=== PATIENT | male | born 1955 | race Caucasian/White ===

== ENCOUNTER 2017-01-22 14:04 | Emergency (ER) | payer OTHER ==
[2017-01-22] MEDS ORDERED: Sodium Chloride 0.9% 1,000 ML IV ONE (14:32)
--- NOTE | 2017-01-22 14:34 | EDM.PDOC ---
ED HPI GENERAL MEDICAL PROBLEM - General Chief Complaint: Abdominal Pain Stated Complaint: STOMACH PAINS, CONSTIPATION Time Seen by Provider: 01/22/17 14:20 Source of Information: Reports: Patient History Limitations: Reports: No Limitations - History of Present Illness INITIAL COMMENTS - FREE TEXT/NARRATIVE: History of present illness: [61-year-old male presenting with complaints of constipation, abdominal pain and pressure, as well as some amount of nausea. Patient indicates he has just recently completed the very long distance drive where he decreased his fluid intake and he feels that this has made him have constipation of the point that it hurts to bear down and he is dehydrated the] Review of systems: As per history of present illness and below otherwise all systems reviewed and negative. Past medical history: As per history of present illness and as reviewed below otherwise noncontributory. Surgical history: As per history of present illness and as reviewed below otherwise noncontributory. Social history: No reported history of drug or alcohol abuse. Family history: As per history of present illness and as reviewed below otherwise noncontributory. Physical exam: HEENT: Atraumatic, normocephalic, pupils reactive, negative for conjunctival pallor or scleral icterus, mucous membranes moist, throat clear, neck supple, nontender, trachea midline. Lungs: Clear to auscultation, breath sounds equal bilaterally, chest nontender. Heart: S1S2, regular, negative for clicks, rubs, or JVD. Abdomen: Soft, nondistended, nontender. Negative for masses or hepatosplenomegaly. Negative for costovertebral tenderness. Pelvis: Stable nontender. Genitourinary: Deferred. Rectal: Deferred. Extremities: Atraumatic, negative for cords or calf pain. Neurovascular unremarkable. Neuro: Awake, alert, oriented. Cranial nerves II through XII unremarkable. Cerebellum unremarkable. Motor and sensory unremarkable throughout. Exam nonfocal. After patient had had some IV fluids he felt the sudden urge to evacuate his bowel. Patient had A medium, per his description and then felt possibly he could void and he indicated that he did produce A significant amount of urine. Patient indicates that he feels all discomfort is gone and would like to go home patient declined any radiographic studies. Diagnostics: [CBC, CMP, KUB] Therapeutics: [IV fluid] Impression: [Constipation] Plan: [] Definitive disposition and diagnosis as appropriate pending reevaluation and review of above. Abdominal Pain Score (Numeric/FACES): 7 - Related Data Allergies Allergy/AdvReac Type Severity Reaction Status Date / Time No Known Allergies Allergy Verified 03/25/16 05:57 Home Meds: Home Meds Canagliflozin/Metformin HCl [Invokamet 150-500 mg Tablet] 1 each PO BID [History] Past Medical History - Past Health History Medical/Surgical History: Denies Medical/Surgical History HEENT History: Reports: None Cardiovascular History: Reports: None Respiratory History: Reports: None Gastrointestinal History: Reports: None Genitourinary History: Reports: Renal Calculus Musculoskeletal History: Reports: None Neurological History: Reports: None Psychiatric History: Reports: None Endocrine/Metabolic History: Reports: Other (See Below) Other Endocrine/Metabolic History: Borderline DM Hematologic History: Reports: None Immunologic History: Reports: None Oncologic (Cancer) History: Reports: None Dermatologic History: Reports: None - Infectious Disease History Infectious Disease History: Reports: Measles, Mumps - Past Surgical History Head Surgeries/Procedures: Reports: None Social & Family History - Family History Family Medical History: Noncontributory - Tobacco Use Smoking Status *Q: Never Smoker Second Hand Smoke Exposure: No - Caffeine Use Caffeine Use: Reports: None - Alcohol Use Days Per Week of Alcohol Use: 0 - Recreational Drug Use Recreational Drug Use: No ED ROS GENERAL - Review of Systems Review Of Systems: See Below (History of present illness) ED EXAM, GI/ABD - Physical Exam Exam: See Below (History of present illness) Course - Vital Signs Last Recorded V/S: Last Vital Signs Temp 36.3 C 01/22/17 14:22 Pulse 81 01/22/17 14:22 Resp 18 01/22/17 14:22 BP 170/86 H 01/22/17 14:22 Pulse Ox 95 01/22/17 14:22 - Orders/Labs/Meds Labs: Laboratory Tests 01/22/17 01/22/17 Range/Units 14:47 15:21 WBC 9.47 (4.0-11.0) K/uL RBC 5.37 (4.50-5.90) M/uL Hgb 15.3 (13.0-17.0) g/dL Hct 48.6 (38.0-50.0) % MCV 90.5 (80.0-98.0) fL MCH 28.5 (27.0-32.0) pg MCHC 31.5 (31.0-37.0) g/dL RDW Std Deviation 49.0 (28.0-62.0) fl RDW Coeff of Arin 15 (11.0-15.0) % Plt Count 190 (150-400) K/uL MPV 10.80 (7.40-12.00) fL Neut % (Auto) 81.6 H (48.0-80.0) % Lymph % (Auto) 11.1 L (16.0-40.0) % Ness % (Auto) 6.3 (0.0-15.0) % Eos % (Auto) 0.8 (0.0-7.0) % Baso % (Auto) 0.2 (0.0-1.5) % Neut # (Auto) 7.7 H (1.4-5.7) K/uL Lymph # (Auto) 1.1 (0.6-2.4) K/uL Ness # (Auto) 0.6 (0.0-0.8) K/uL Eos # (Auto) 0.1 (0.0-0.7) K/uL Baso # (Auto) 0.0 (0.0-0.1) K/uL Nucleated RBC % 0.0 /100WBC Nucleated RBCs # 0 K/uL Sodium 140 (136-146) mmol/L Potassium 4.4 (3.5-5.1) mmol/L Chloride 108 (98-110) mmol/L Carbon Dioxide 22 (21-31) mmol/L BUN 21 (6.0-23.0) mg/dL Creatinine 1.2 (0.6-1.5) mg/dL Est Cr Clr Drug Dosing 79.22 mL/min Estimated GFR (MDRD) > 60.0 ml/min Glucose 104 (60-110) mg/dL Calcium 9.5 (8.8-10.8) mg/dL Total Bilirubin 0.8 (0.1-1.5) mg/dL AST 15 (5-40) IU/L ALT 14 (8-54) IU/L Alkaline Phosphatase 66 (40-150) Total Protein 8.1 H (6.0-8.0) g/dL Albumin 4.3 (3.5-5.0) g/dL Globulin 3.8 H (2.0-3.5) g/dL Albumin/Globulin Ratio 1.1 L (1.3-2.8) Meds: Medications Discontinued Medications Generic Name Dose Route Start Last Admin Trade Name Ubaldo PRN Reason Stop Dose Admin Sodium Chloride 1,000 mls @ 999 mls/hr 01/22/17 14:32 01/22/17 14:50 Normal Saline IV 01/22/17 15:32 999 mls/hr STAT ONE Administration Departure - Departure Time of Disposition: 16:02 Disposition: Home, Self-Care 01 Condition: good Clinical Impression: Abdominal pain, Constipation - Discharge Information Instructions: Abdominal Pain, Adult, [id number], Constipation, Adult, Easy-to -Read Forms: ED Department Discharge Additional Instructions: The following information is given to patients seen in the emergency department who are being discharged to home. This information is to outline your options for follow-up care. We provide all patients seen in our emergency department with a follow-up referral. The need for follow-up, as well as the timing and circumstances, are variable depending upon the specifics of your emergency department visit. If you don't have a primary care physician on staff, we will provide you with a referral. We always advise you to contact your personal physician following an emergency department visit to inform them of the circumstance of the visit and for follow-up with them and/or the need for any referrals to a consulting specialist. The emergency department will also refer you to a specialist when appropriate. This referral assures that you have the opportunity for follow-up care with a specialist. All of these measure are taken in an effort to provide you with optimal care, which includes your follow-up. Under all circumstances we always encourage you to contact your private physician who remains a resource for coordinating your care. When calling for follow-up care, please make the office aware that this follow-up is from your recent emergency room visit. If for any reason you are refused follow-up, please contact the Emergency Department at and asked to speak to the emergency department charge nurse. Increase water as discussed Increase activity as discussed follow up with the PCP 1-2 day Return to ED as needed as
[2017-01-22 15:52] LABS: CHLORIDE,CL 108 mmol/L (98-110); SODIUM,NA 140 mmol/L (136-146)
[2017-01-22 16:28] VITALS: BP 145/67
== END 2017-01-22 16:25 | disposition home or self-care (01) ==
LOC: MW.ED 14:04
DX: K59.00 Constipation, unspecified (principal); Z79.899 Other long term (current) drug therapy
CPT/HCPCS: 36415; 80053; 85025; 96360; 99284; J7040; 99282

== ENCOUNTER 2017-12-19 10:45 | Inpatient (IN) | payer BC ==
[~2017-12-19 10:45] MED LIST: Dermabond Prineo 1 Tube TOP ONE; Sodium Chloride 0.9% 10 ML Syringe FLUSH PRN; Sodium Chloride 0.9% 2.5 ML Syringe FLUSH PRN; ceFAZolin 2 GM in Premix Bag 1 BAG IV ONE
[2017-12-19] MEDS ORDERED: Lidocaine 2% 5 ML SDV ONE (10:51)
[2017-12-19] MEDS ORDERED: Midazolam 1 MG/ML 2 ML SDV ONE (10:52)
[2017-12-19] MEDS ORDERED: fentaNYL 100 MCG/2 ML SDV ONE (10:52)
[2017-12-19] MEDS ORDERED: Propofol 200 MG/20 ML SDV ONE ×4 (10:52→13:54)
[2017-12-19] MEDS ORDERED: ceFAZolin 1 GM Vial ONE (10:56)
[2017-12-19] MEDS ORDERED: Sodium Chloride 0.9% 20 ML ONE (10:56)
[2017-12-19] MEDS: Lactated Ringers 1,000 ML IV SCH ×2 (11:24→21:53)
--- NOTE | 2017-12-19 11:35 | PCM.PREANE ---
Preanesthetic Assessment - Anesthesia/Transfusion/Family Hx Anesthesia History: Prior Anesthesia Without Reaction Family History of Anesthesia Reaction: No Transfusion History: No Prior Transfusion(s) - Review of Systems General: No Symptoms Pulmonary: Other (SLADE uses CPAP) Cardiovascular: No Symptoms Gastrointestinal: No Symptoms Neurological: No Symptoms Other: Reports: Diabetes ("pre diabetic, Hb A1c = 5, on Invokamet, and lisinopril for renal protection. ) - Physical Assessment NPO Status Date: 12/18/17 O2 Sat by Pulse Oximetry: 97 Respiratory Rate: 16 Vital Signs: Last Vital Signs Temp 36.2 C 12/19/17 11:20 Pulse 68 12/19/17 11:20 Resp 16 12/19/17 11:20 BP 143/72 H 12/19/17 11:20 Pulse Ox 97 12/19/17 11:20 Height: 1.91 m Weight: 176.901 kg ASA Class: 3 Airway Class: Mallampati = 1 Dentition: Reports: Normal Dentition ROM/Head Extension: Full Lungs: Clear to Auscultation, Normal Respiratory Effort Cardiovascular: Regular Rate, Regular Rhythm - Allergies Allergies/Adverse Reactions: Allergies Allergy/AdvReac Type Severity Reaction Status Date / Time No Known Allergies Allergy Verified 12/19/17 11:25 - Acknowledgements Anesthesia Type Planned: General Anesthesia, Spinal Pt an Appropriate Candidate for the Planned Anesthesia: Yes Alternatives and Risks of Anesthesia Discussed w Pt/Guardian: Yes Pt/Guardian Understands and Agrees with Anesthesia Plan: Yes Additional Comments: PLAN: spinal as primary anesthetic, sevo with LMA for sedation and airway protection. PreAnesthesia Questionnaire - Past Health History Medical/Surgical History: Denies Medical/Surgical History HEENT History: Reports: None Cardiovascular History: Reports: None Respiratory History: Reports: Sleep Apnea Other Respiratory History: uses CPAP Gastrointestinal History: Reports: None Genitourinary History: Reports: Renal Calculus Musculoskeletal History: Reports: Fracture, Osteoarthritis Other Musculoskeletal History: DJD, hx fx ankle Neurological History: Reports: None Psychiatric History: Reports: None Endocrine/Metabolic History: Reports: Obesity/BMI 30+, Other (See Below) Other Endocrine/Metabolic History: "prediabetic" Hematologic History: Reports: None Immunologic History: Reports: None Oncologic (Cancer) History: Reports: None Dermatologic History: Reports: None - Infectious Disease History Infectious Disease History: Reports: Measles, Mumps - Past Surgical History Head Surgeries/Procedures: Reports: None HEENT Surgical History: Reports: Tonsillectomy - SUBSTANCE USE Smoking Status *Q: Never Smoker Second Hand Smoke Exposure: No Days Per Week of Alcohol Use: 0 Recreational Drug Use History: No - HOME MEDS Home Medications: Home Meds Canagliflozin/Metformin HCl [Invokamet 150-500 mg Tablet] 1 each PO BID [History] Aspirin [Lo-Dose Aspirin EC] 81 mg PO DAILY 12/17/17 [History] Celecoxib 200 mg PO DAILY 12/17/17 [History] Lisinopril 5 mg PO DAILY 12/17/17 [History] Pravastatin Sodium 10 mg PO DAILY 12/17/17 [History] - CURRENT (IN HOUSE) MEDS Current Meds: Current Medications Lactated Ringer's (Ringers, Lactated) 1,000 mls @ 125 mls/hr IV ASDIRECTED SHASHI Last Admin: 12/19/17 11:24 Dose: 125 mls/hr Sodium Chloride (Saline Flush) 10 ml FLUSH ASDIRECTED PRN PRN Reason: Keep Vein Open Sodium Chloride (Saline Flush) 2.5 ml FLUSH ASDIRECTED PRN PRN Reason: Keep Vein Open Tranexamic Acid (Cyklokapron) 2,000 mg IV ONETIME ONE Stop: 12/19/17 13:01 Discontinued Medications Cefazolin Sodium (Ancef) Confirm Administered Dose 2 gm .ROUTE .STK-MED ONE Stop: 12/19/17 10:57 Fentanyl (Sublimaze) Confirm Administered Dose 100 mcg .ROUTE .STK-MED ONE Stop: 12/19/17 10:53 Cefazolin Sodium/Dextrose 2 gm (/ Premix) 50 mls @ 50 mls/hr IV ONETIME ONE Stop: 12/19/17 08:05 Sodium Chloride (Normal Saline) Confirm Administered Dose 20 mls @ as directed .ROUTE .STK-MED ONE Stop: 12/19/17 10:57 Lidocaine (Xylocaine-Mpf 2%) Confirm Administered Dose 5 ml .ROUTE .STK-MED ONE Stop: 12/19/17 10:52 Midazolam HCl (Versed 1 Mg/Ml) Confirm Administered Dose 2 mg .ROUTE .STK-MED ONE Stop: 12/19/17 10:53 Octyl Cyanoacrylate (Dermabond Prineo) 1 applic TOP .STK-MED ONE Stop: 12/19/17 07:27 Propofol (Diprivan 20 Ml) Confirm Administered Dose 600 mg .ROUTE .STK-MED ONE Stop: 12/19/17 10:53
[2017-12-19] MEDS ORDERED: Phenylephrine/Normal Saline 100 MCG/ML 10 ML Syringe ONE (13:44)
--- NOTE | 2017-12-19 14:17 | PCM.OPNOTE ---
- General Post-Op/Procedure Note Date of Surgery/Procedure: 12/19/17 Operative Procedure(s): left anterior total hip arthroplasty Findings: severe OA Pre Op Diagnosis: left hip osteoarthritis Post-Op Diagnosis: same Anesthesia Technique: Moderate Sedation, Spinal Primary Surgeon: Jimenez Jeronimo Mai [employer] Professor: Holly Vasquez Pathology: femoral head EBL in mLs: 500 Complications: none Condition: Good
[2017-12-19] MEDS ORDERED: Bisacodyl 10 MG Supp RECTAL PRN (14:24)
[2017-12-19] MEDS ORDERED: Ondansetron 4 MG/2 ML SDV IV PRN (14:24)
[2017-12-19] MEDS ORDERED: diphenhydrAMINE 25 MG Cap PO PRN (14:24)
[2017-12-19] MEDS ORDERED: Aluminum Hydroxide/Magnesium Hydroxide/Simethicone Susp 30 ML Cup PO PRN (14:24)
--- NOTE | 2017-12-19 14:45 | PCM.POSTAN ---
POST ANESTHESIA ASSESSMENT - MENTAL STATUS Mental Status: Alert, Oriented - RESPIRATORY Respiratory Status: Respiratory Rate WNL, Airway Patent, O2 Saturation Stable - CARDIOVASCULAR CV Status: Pulse Rate WNL, Blood Pressure Stable - GASTROINTESTINAL GI Status: No Symptoms - POST OP HYDRATION Hydration Status: Adequate & Stable
--- NOTE | 2017-12-19 15:03 | OR ---
SURGEON: Jimenez Glaser MD DATE OF PROCEDURE: 12/19/2017 LEGAL TRANSCRIPTIONIST: Holly Vasquez PA-C. PREOPERATIVE DIAGNOSIS: Left hip osteoarthritis. POSTOPERATIVE DIAGNOSIS: Left hip osteoarthritis. OPERATION PERFORMED: Left anterior total hip arthroplasty. ANESTHESIA: Spinal with sedation. COMPLICATIONS: None. ESTIMATED BLOOD LOSS: 500 mL. SPECIMENS: Femoral head. IMPLANTS: Continuum trabecular metal shell, cluster holes, 58 mm outer diameter. Vivacit- E neutral liner, 36 mm inner diameter; Fitmore hip stem uncemented size C8, biologic delta ceramic femoral head 36 mm diameter +3.5 neck length. PAOLA Vasquez was instrumental in case with retraction, closing, reduction, and hemostasis. INDICATIONS: The patient is a 62-year-old male with severe hip arthritis. He has failed conservative management, modification therapy injections and chronic pain on a daily basis hindering all activities. He wished to undergo a total hip arthroplasty. He understands the risks, benefits, alternatives, and complications of procedure including, but not limited to, infection, neurovascular injury, continued pain, nonresolution of symptoms, DVT, PE, stroke, ND, , leg-length discrepancy, fracture, dislocation. He wished to proceed. OPERATION IN DETAIL: The patient was seen in preoperative area. Operative site was marked. The patient was transferred to the operating room and spinal anesthetic was given. He was placed supine on the Rooney table, and sedation was given. Legs were placed in legs bar with narrow perineal post. Left hip was prepped and draped in a sterile fashion using alcohol followed by ChloraPrep with Ioban covering. He received preop antibiotics with Ancef and also 2 g TXA. Formal time-out was taken identifying the correct procedure and extremity. A 12- cm incision starting just laterally to ASIS going obliquely down femur was made. Dissection carried down to subcutaneous tissues. Hemostasis was obtained. The fascia overlying the TFL was opened and the interval between the TFL and sartorius and deep between the abductors and rectus was opened. The vastus lateralis fascia was opened and the anterior vessels were coagulated. A deep Dylan tractor was placed. The capsule was held and tagged with two FiberWires and the neck was cut from saddle region 1 cm above the lesser trochanter and the head was removed. There was noted be complete loss of cartilage on the superior femoral head and acetabulum. Labral remnants were removed as well as the pulvinar and the inferior capsules were released as well as some portions of the iliopsoas tendon to do extreme tightness. The head measured about 53, it was sequentially reamed from 53 up to 57 mm, it was excellent fit and fill and the bed was planed to make sure it was level and then a Continuum trabecular metal shell with cluster holes impacted in 15 degrees of anteversion and 40 degrees of abduction. It had an excellent press fit. The wound was irrigated out, cleaned out, and then the neutral liner was impacted. Leg was then externally rotated, abducted, and extended after placing the femoral lift. The medial calcar capsule was released. Superior capsule obturator internus and piriformis were released. Central canal finder was utilized and then hip was sequentially broached from starter rasp up to a size C8. It was trial reduced with printed overlay technique with the zero neck length. This showed offset to be good, but leg length to be slightly decreased, therefore the hip was dislocated. The wound was thoroughly irrigated. After removing the stem and the final stem was impacted following the iqugmiut version. It was trial reduced with a +3.5 neck length, which showed equal leg lengths and offset. Therefore, the hip was dislocated. The final ceramic head, 36 mm in diameter, +3.5 neck length was impacted. The hip was reduced. Stay sutures were tied together. The fascia was closed with #1 Vicryl, subcutaneous tissues with 2-0 Stratafix, and skin with running 4-0 Monocryl. Dermabond tape and Aquacel dressing was placed. The patient was transferred to the recovery room in stable condition. Sponge and needle counts were correct at the end of the case. No complications. The patient was given aspirin for DVT prophylaxis. Weightbearing as tolerated. DANIELA / NELSY /[id number]
--- NOTE | 2017-12-19 15:29 | PCM.CONS ---
H&P History of Present Illness - General Date of Service: 12/19/17 Admit Problem/Dx: Admission Diagnosis/Problem Admission Diagnosis/Problem Hip replacement planned Source of Information: Patient, Old Records (Dr Graham's Pre-op evaluation) History Limitations: Reports: No Limitations - History of Present Illness Initial Comments - Free Text/Narative: This 62 [place] old very pleasant male with pmh of SLADE, DM type 2 and obesity presented to L anterior ERIC today with Dr Glaser. Hospitalist service consulted for medical management of DM. Pedrito recently came to floor from PACU, he is alert and doing well. No complaints at this time. No chest pain, SOB or hip pain. Reports he has lost 100 lbs since being diagnoses with diabetes and is feeling a lot better. Pre-op report from Dr Graham reviewed. PCP, Dr Graham. - Related Data Allergies/Adverse Reactions: Allergies Allergy/AdvReac Type Severity Reaction Status Date / Time No Known Allergies Allergy Verified 12/19/17 11:25 Home Medications: Home Meds Canagliflozin/Metformin HCl [Invokamet 150-500 mg Tablet] 1 each PO BID [History] Aspirin [Lo-Dose Aspirin EC] 81 mg PO DAILY 12/17/17 [History] Celecoxib 200 mg PO DAILY 12/17/17 [History] Lisinopril 5 mg PO DAILY 12/17/17 [History] Pravastatin Sodium 10 mg PO DAILY 12/17/17 [History] Past Medical History - Past Health History Medical/Surgical History: Denies Medical/Surgical History HEENT History: Reports: None Cardiovascular History: Reports: High Cholesterol (elevated LDL). Denies: CAD, Hypertension Respiratory History: Reports: Sleep Apnea Other Respiratory History: uses CPAP Gastrointestinal History: Reports: None Genitourinary History: Reports: Renal Calculus Musculoskeletal History: Reports: Fracture, Osteoarthritis Other Musculoskeletal History: DJD, hx fx ankle Neurological History: Reports: None Psychiatric History: Reports: None Endocrine/Metabolic History: Reports: Diabetes, Type II, Obesity/BMI 30+ Hematologic History: Reports: None Immunologic History: Reports: None Oncologic (Cancer) History: Reports: None Dermatologic History: Reports: None - Infectious Disease History Infectious Disease History: Reports: Measles, Mumps - Past Surgical History Head Surgeries/Procedures: Reports: None HEENT Surgical History: Reports: Tonsillectomy Social & Family History - Family History Family Medical History: Noncontributory - Tobacco Use Smoking Status *Q: Never Smoker Second Hand Smoke Exposure: No - Caffeine Use Caffeine Use: Reports: Coffee - Alcohol Use Days Per Week of Alcohol Use: 0 Alcohol Use Frequency: Rarely - Recreational Drug Use Recreational Drug Use: No - Living Situation & Occupation Living situation: Reports: H&P Review of Systems - Review of Systems: Review Of Systems: See Below General: Reports: No Symptoms. Denies: Fever, Chills, Malaise, Weakness, Fatigue HEENT: Reports: No Symptoms. Denies: Headaches, Sinus Congestion, Sore Throat, Vertigo Pulmonary: Reports: No Symptoms. Denies: Shortness of Breath, Wheezing, Cough, Sputum Cardiovascular: Reports: No Symptoms. Denies: Chest Pain, Palpitations, Edema Gastrointestinal: Reports: No Symptoms. Denies: Abdominal Pain, Black Stool, Bloody Stool, Nausea, Vomiting Genitourinary: Reports: No Symptoms. Denies: Dysuria, Frequency, Burning Musculoskeletal: Reports: No Symptoms Skin: Reports: No Symptoms Psychiatric: Reports: No Symptoms Neurological: Reports: No Symptoms Exam - Exam Exam: See Below - Vital Signs Vital Signs: Last Vital Signs Temp 98.6 F 12/19/17 14:25 Pulse 60 12/19/17 14:50 Resp 10 L 12/19/17 14:50 BP 111/46 L 12/19/17 14:50 Pulse Ox 96 12/19/17 14:50 Weight: 176.901 kg - Exam Quality Assessment: Supplemental Oxygen, Urinary Catheter, DVT Prophylaxis General: Alert, Oriented, Cooperative HEENT: Conjunctiva Clear, Mucosa Moist & Monument, Posterior Pharynx Clear Neck: Supple, Trachea Midline, Full Range of Motion, Other (large neck circumference) Lungs: Clear to Auscultation, Normal Respiratory Effort Cardiovascular: Regular Rate, Regular Rhythm GI/Abdominal Exam: Normal Bowel Sounds, Soft, Non-Tender, No Organomegaly, No Distention, No Abnormal Bruit, No Mass, Pelvis Stable, Other (obese abdomen) Extremities: Normal Inspection, Normal Range of Motion, Non-Tender, No Pedal Edema, Normal Capillary Refill Skin: Incision (L hip C/D/I) Neurological: Cranial Nerves Intact Neuro Extensive - Mental Status: Alert, Oriented x3 Psychiatric: Alert, Normal Affect, Normal Mood - Patient Data Lab Results Last 24 hrs: Laboratory Results - last 24 hr 12/19/17 Range/Units 11:35 POC Glucose 85 (60-110) mg/dL Consult PN Assessment/Plan Procedures: Procedures ASSAY OF NATRIURETIC PEPTIDE (01/23/15) ASSAY OF TROPONIN QUANT (01/23/15) ASSAY THYROID STIM HORMONE (03/22/16) CHEST X-RAY 2VW FRONTAL&LATL (03/07/15) COMPLETE CBC AUTOMATED (12/04/17) COMPLETE CBC W/AUTO DIFF WBC (01/22/17) COMPREHEN METABOLIC PANEL (01/22/17) CT ABD & PELVIS W/O CONTRAST (02/02/16) CT THORAX W/O DYE (06/17/17) DRAIN/INJ JOINT/BURSA W/O US (10/16/17) ELECTROCARDIOGRAM TRACING (12/04/17) EMERGENCY DEPT VISIT (01/22/17) EMERGENCY DEPT VISIT (03/25/16) EMERGENCY DEPT VISIT (02/02/16) EMERGENCY DEPT VISIT (01/23/15) FIBRIN DEGRADATION QUANT (01/23/15) GLUCOSE BLOOD TEST (03/25/16) GLYCOSYLATED HEMOGLOBIN TEST (11/29/17) HYDRATE IV INFUSION ADD-ON (02/02/16) HYDRATION IV INFUSION INIT (01/22/17) LIPID PANEL (05/31/17) MEDICAL NUTRITION INDIV IN (04/05/16) METABOLIC PANEL TOTAL CA (11/29/17) NEEDLE LOCALIZATION BY XRAY (10/16/17) POLYSOM 6/>YRS CPAP 4/> PARM (05/24/16) PROTHROMBIN TIME (12/04/17) ROUTINE VENIPUNCTURE (12/04/17) THER/PROPH/DIAG INJ IV PUSH (02/02/16) THER/PROPH/DIAG INJ SC/IM (01/23/15) THROMBOPLASTIN TIME PARTIAL (01/23/15) TX/PRO/DX INJ NEW DRUG ADDON (02/02/16) UR ALBUMIN SEMIQUANTITATIVE (05/31/17) URINALYSIS AUTO W/SCOPE (12/04/17) URINE CULTURE/COLONY COUNT (02/02/16) US EXAM SCROTUM (02/02/16) VASCULAR STUDY (02/02/16) X-RAY EXAM CHEST 2 VIEWS (12/04/17) X-RAY EXAM HIP UNI 2-3 VIEWS (10/15/17) (1) Status post total replacement of left hip SNOMED Code(s): 318939741578, 154272078781 Code(s): Z96.642 - PRESENCE OF LEFT ARTIFICIAL HIP JOINT Current Visit: Yes (2) DM type 2 (diabetes mellitus, type 2) SNOMED Code(s): 70187230 Code(s): E11.9 - TYPE 2 DIABETES MELLITUS WITHOUT COMPLICATIONS Current Visit: Yes Qualifiers: Diabetes mellitus termination clerk insulin use: without termination clerk use Diabetes mellitus complication status: without complication Qualified Code(s): E11.9 - Type 2 diabetes mellitus without complications (3) Elevated LDL cholesterol level SNOMED Code(s): 256776422 Code(s): E78.00 - PURE HYPERCHOLESTEROLEMIA, UNSPECIFIED Current Visit: Yes (4) SLADE on CPAP SNOMED Code(s): 12895722 Code(s): G47.33 - OBSTRUCTIVE SLEEP APNEA (ADULT) (PEDIATRIC); Z99.89 - DEPENDENCE ON OTHER ENABLING MACHINES AND DEVICES Current Visit: Yes (5) Obesity SNOMED Code(s): 842307200, 598228391 Code(s): E66.9 - OBESITY, UNSPECIFIED Current Visit: No Problem List Initiated/Reviewed/Updated: Yes My Orders Last 24 Hours: My Active Orders 12/19/17 15:26 Blood Glucose Check, Bedside [RC] TIDAC 12/19/17 17:00 Insulin Aspart [NovoLOG] See Protocol SUBCUT TIDAC Plan: This 62 year old male admitted with L anterior ERIC. Hospitalist service consulted for medical management of DM 1. S/P L ant ERIC: Per Orthopedics 2. DM type 2: Stable, very well controlled. A1c 5.9. Hold Invokamet while admitted, may restart on discharge. Novolog SSI. Check BS TIDAC. Continue Lisinopril and statin. Monitor BMP. 3. SLADE: On CPAP, did bring for use in the hospital. VTE prophylaxis: Would recommend when deemed appropriate by Orthopedics, ASA BID currently ordered.
[2017-12-19] MEDS: Acetaminophen/HYDROcodone 325-5 MG Tab PO PRN ×2 (15:46→20:28)
[2017-12-19] MEDS: Insulin Aspart 100 Units/ML 3 ML Pen SUBCUT SCH (16:04)
--- NOTE | 2017-12-19 16:19 | CR ---
EXAMINATION: Left hip HISTORY: Arthroplasty COMPARISON: 10/16/2017 TECHNIQUE: 3 images provided FINDINGS/IMPRESSION: Operative control films demonstrate placement of left total hip hardware in good position and alignment. Comparative right hip appears normal.
[2017-12-19] MEDS: Morphine 4 MG/ML Syringe IVPUSH PRN ×2 (18:48→21:48)
[2017-12-19] MEDS: Docusate Sodium 100 MG Cap PO SCH (20:28)
[2017-12-19] MEDS: ceFAZolin 2 GM in Premix Bag 1 BAG IV SCH (20:31)
[2017-12-19] MEDS ORDERED: CANAGLIFLOZIN PO SCH (21:00)
[2017-12-19] MEDS ORDERED: METFORMIN HCL PO SCH (21:00)
[2017-12-20] MEDS: Acetaminophen/HYDROcodone 325-5 MG Tab PO PRN ×2 (00:37→08:23)
[2017-12-20] MEDS: Morphine 4 MG/ML Syringe IVPUSH PRN (03:42)
[2017-12-20] MEDS: ceFAZolin 2 GM in Premix Bag 1 BAG IV SCH (04:01)
[2017-12-20 06:41] LABS: CHLORIDE,CL 104 mmol/L (98-107); SODIUM,NA 136 mmol/L (136-148)
[2017-12-20] MEDS: Insulin Aspart 100 Units/ML 3 ML Pen SUBCUT SCH ×2 (06:53→12:03)
[2017-12-20] MEDS ORDERED: Sodium Chloride 0.9% 2.5 ML Syringe FLUSH PRN (07:47)
[2017-12-20] MEDS ORDERED: Sodium Chloride 0.9% 10 ML Syringe FLUSH PRN (07:47)
--- NOTE | 2017-12-20 07:53 | PCM.SN ---
- Free Text/Narrative Note: Subjective: Patient is overall doing very well. He is ambulating by himself multiple times with a walker. His deep pain is better. He's having no other issues and is tolerating by mouth. Objective: Afebrile, vital signs stable Left hip dressing clean/dry/intact. Ears no erythema or drainage. There is no swelling in thigh or distally and he has normal sensation motor and pulses distally. Hgb 14.0 Assessment/Plan: POD#1 Left total hip arthroplasty full weight bearing with walker, PT SCDs and ecotrin for DVT prophylaxis hgb is good home today with follow up in 2 weeks.
--- NOTE | 2017-12-20 08:00 | PCM.DCSUM1 ---
Discharge Summary - Hospital Course Brief History: patient is admitted for elective total hip arthroplasty - Discharge Data Discharge Date: 12/20/17 Discharge Disposition: Home, Self-Care 01 Condition: Good - Patient Summary/Data Operative Procedure(s) Performed: left anterior total hip arthroplasty Consults: Consultations 12/19/17 14:24 Consult to Physician [CONS] Routine PT Evaluation and Treatment [CONS] Routine Hospital Course: patient was admitted for elective total hip arthroplasty. postoperatively he was admitted to the floor where his pain was controlled, his diet was advanced, and his pain was controlled. He participated in physical therpay with weight bearing as tolerated. He did well and was discharged to home on POD #1. follow up in 2 weeks. - Patient Instructions Diet: Usual Diet as Tolerated Activity: Apply Ice, As Tolerated, Full Weight Bearing Driving: Do Not Drive Showering/Bathing: May Shower Wound/Incision Care: Keep Operative Site/Wound Site Clean and Dry, Do NOT Change Dressing Notify Provider of: Fever, Swelling and Redness, Drainage - Discharge Plan Home Medications: Home Meds Canagliflozin/Metformin HCl [Invokamet 150-500 mg Tablet] 1 each PO BID [History] Aspirin [Lo-Dose Aspirin EC] 81 mg PO DAILY 12/17/17 [History] Celecoxib 200 mg PO DAILY 12/17/17 [History] Lisinopril 5 mg PO DAILY 12/17/17 [History] Pravastatin Sodium 10 mg PO DAILY 12/17/17 [History] Patient Handouts: Acetaminophen; Hydrocodone tablets or capsules, Total Hip Replacement, Care After, [id number], Docusate capsules, Aspirin capsules or tablets extended release Referrals: Holly Vasquez PA [Physician [employer]] - 12/31/17 8:45 am - Discharge Summary/Plan Comment DC Time >30 min.: No - Patient Data Vitals - Most Recent: Last Vital Signs Temp 36.8 C 12/20/17 07:44 Pulse 78 12/20/17 07:44 Resp 18 12/20/17 07:44 BP 147/78 H 12/20/17 07:44 Pulse Ox 96 12/20/17 07:44 Weight - Most Recent: 176.901 kg I&O - Last 24 hours: Intake & Output 12/19/17 12/20/17 12/20/17 22:59 06:59 14:59 Intake Total 800 Output Total 1000 Balance -200 Lab Results - Last 24 hrs: Laboratory Results - last 24 hr 12/19/17 12/19/17 12/20/17 Range/Units 11:35 16:01 05:50 WBC 10.95 (4.0-11.0) K/uL RBC 4.65 (4.50-5.90) M/uL Hgb 14.0 (13.0-17.0) g/dL Hct 42.3 (38.0-50.0) % MCV 91.0 (80.0-98.0) fL MCH 30.1 (27.0-32.0) pg MCHC 33.1 (31.0-37.0) g/dL RDW Std Deviation 47.9 (28.0-62.0) fl RDW Coeff of Arin 14 (11.0-15.0) % Plt Count 139 L (150-400) K/uL MPV 10.30 (7.40-12.00) fL Neut % (Auto) 81.9 H (48.0-80.0) % Lymph % (Auto) 9.0 L (16.0-40.0) % Canadian % (Auto) 7.8 (0.0-15.0) % Eos % (Auto) 1.1 (0.0-7.0) % Baso % (Auto) 0.2 (0.0-1.5) % Neut # (Auto) 9.0 H (1.4-5.7) K/uL Lymph # (Auto) 1.0 (0.6-2.4) K/uL Canadian # (Auto) 0.9 H (0.0-0.8) K/uL Eos # (Auto) 0.1 (0.0-0.7) K/uL Baso # (Auto) 0.0 (0.0-0.1) K/uL Nucleated RBC % 0.0 /100WBC Nucleated RBCs # 0 K/uL Sodium (136-148) mmol/L Potassium (3.5-5.1) mmol/L Chloride (98-107) mmol/L Carbon Dioxide (21.0-32.0) mmol/L BUN (7.0-18.0) mg/dL Creatinine (0.8-1.3) mg/dL Est Cr Clr Drug Dosing mL/min Estimated GFR (MDRD) ml/min Glucose (74-106) mg/dL POC Glucose 85 90 (60-110) mg/dL Calcium (8.5-10.1) mg/dL 12/20/17 12/20/17 Range/Units 05:50 06:17 WBC (4.0-11.0) K/uL RBC (4.50-5.90) M/uL Hgb (13.0-17.0) g/dL Hct (38.0-50.0) % MCV (80.0-98.0) fL MCH (27.0-32.0) pg MCHC (31.0-37.0) g/dL RDW Std Deviation (28.0-62.0) fl RDW Coeff of Arin (11.0-15.0) % Plt Count (150-400) K/uL MPV (7.40-12.00) fL Neut % (Auto) (48.0-80.0) % Lymph % (Auto) (16.0-40.0) % Canadian % (Auto) (0.0-15.0) % Eos % (Auto) (0.0-7.0) % Baso % (Auto) (0.0-1.5) % Neut # (Auto) (1.4-5.7) K/uL Lymph # (Auto) (0.6-2.4) K/uL Canadian # (Auto) (0.0-0.8) K/uL Eos # (Auto) (0.0-0.7) K/uL Baso # (Auto) (0.0-0.1) K/uL Nucleated RBC % /100WBC Nucleated RBCs # K/uL Sodium 136 (136-148) mmol/L Potassium 4.7 (3.5-5.1) mmol/L Chloride 104 (98-107) mmol/L Carbon Dioxide 28.2 (21.0-32.0) mmol/L BUN 17 (7.0-18.0) mg/dL Creatinine 1.1 (0.8-1.3) mg/dL Est Cr Clr Drug Dosing 85.35 mL/min Estimated GFR (MDRD) > 60.0 ml/min Glucose 116 H (74-106) mg/dL POC Glucose 98 (60-110) mg/dL Calcium 8.7 (8.5-10.1) mg/dL Med Orders - Current: Current Medications Hydrocodone Bitart/Acetaminophen ([place] 325-5 Mg) 1 - 2 tab PO Q4H PRN PRN Reason: Pain Last Admin: 12/20/17 00:37 Dose: 2 tab Al Hydroxide/Mg Hydroxide (Mag-Al Plus) 30 ml PO Q4H PRN PRN Reason: indigestion Aspirin (Aspirin) 325 mg PO BID [facility] Bisacodyl (Dulcolax) 10 mg RECTAL DAILY PRN PRN Reason: Constipation Celecoxib (Celebrex) 200 mg PO DAILY [facility] Diphenhydramine HCl (Benadryl) 25 - 50 mg PO Q6H PRN PRN Reason: Itching Docusate Sodium (Colace) 100 mg PO BID [facility] Last Admin: 12/19/17 20:28 Dose: 100 mg Lactated Ringer's (Ringers, Lactated) 1,000 mls @ 125 mls/hr IV ASDIRECTED [facility] Last Admin: 12/19/17 21:53 Dose: 125 mls/hr Insulin Aspart (Novolog) 0 unit SUBCUT TIDAC [facility]; Protocol Last Admin: 12/20/17 06:53 Dose: Not Given Lisinopril (Prinivil) 5 mg PO DAILY [facility] Morphine Sulfate (Morphine) 1 - 3 mg IVPUSH Q3H PRN PRN Reason: Pain Last Admin: 12/20/17 03:42 Dose: 1 mg Ondansetron HCl (Zofran) 4 mg IV Q6HR PRN PRN Reason: NAUSEA/VOMITING Pravastatin Sodium (Pravachol) 10 mg PO DAILY [facility] Sodium Chloride (Saline Flush) 10 ml FLUSH ASDIRECTED PRN PRN Reason: Keep Vein Open Sodium Chloride (Saline Flush) 2.5 ml FLUSH ASDIRECTED PRN PRN Reason: Keep Vein Open Sodium Chloride (Saline Flush) 10 ml FLUSH ASDIRECTED PRN PRN Reason: Keep Vein Open Sodium Chloride (Saline Flush) 2.5 ml FLUSH ASDIRECTED PRN PRN Reason: Keep Vein Open Discontinued Medications Cefazolin Sodium (Ancef) Confirm Administered Dose 2 gm .ROUTE .STK-MED ONE Stop: 12/19/17 10:57 Fentanyl (Sublimaze) Confirm Administered Dose 100 mcg .ROUTE .STK-MED ONE Stop: 12/19/17 10:53 Cefazolin Sodium/Dextrose 2 gm (/ Premix) 50 mls @ 50 mls/hr IV ONETIME ONE Stop: 12/19/17 08:05 Last Admin: 12/19/17 14:56 Dose: Not Given Sodium Chloride (Normal Saline) Confirm Administered Dose 20 mls @ as directed .ROUTE .STK-MED ONE Stop: 12/19/17 10:57 Cefazolin Sodium/Dextrose 2 gm (/ Premix) 50 mls @ 100 mls/hr IV Q8H SHASHI Stop: 12/20/17 05:29 Last Admin: 12/20/17 04:01 Dose: 100 mls/hr Lidocaine (Xylocaine-Mpf 2%) Confirm Administered Dose 5 ml .ROUTE .STK-MED ONE Stop: 12/19/17 10:52 Lidocaine HCl (Xylocaine-Mpf 1%) Confirm Administered Dose 5 ml .ROUTE .STK-MED ONE Stop: 12/19/17 13:21 Midazolam HCl (Versed 1 Mg/Ml) Confirm Administered Dose 2 mg .ROUTE .STK-MED ONE Stop: 12/19/17 10:53 Octyl Cyanoacrylate (Dermabond Prineo) 1 applic TOP .STK-MED ONE Stop: 12/19/17 07:27 Canagliflozin/Metformin Hcl [ Invokamet 150-500 Mg Tablet 1 Tablet 1 each PO BID SHASHI Phenylephrine HCl (Phenylephrine In Ns 100 Mcg/Ml) Confirm Administered Dose 1 mg .ROUTE .STK-MED ONE Stop: 12/19/17 13:45 Propofol (Diprivan 20 Ml) Confirm Administered Dose 600 mg .ROUTE .STK-MED ONE Stop: 12/19/17 10:53 Propofol (Diprivan 20 Ml) Confirm Administered Dose 600 mg .ROUTE .STK-MED ONE Stop: 12/19/17 13:14 Propofol (Diprivan 20 Ml) Confirm Administered Dose 200 mg .ROUTE .STK-MED ONE Stop: 12/19/17 13:49 Propofol (Diprivan 20 Ml) Confirm Administered Dose 400 mg .ROUTE .STK-MED ONE Stop: 12/19/17 13:55 Tranexamic Acid (Cyklokapron) 2,000 mg IV ONETIME ONE Stop: 12/19/17 13:01 Last Admin: 12/19/17 14:56 Dose: Not Given
--- NOTE | 2017-12-20 08:07 | PCM48HPAN ---
Post Anesthesia Note - EVALUATION WITHIN 48HRS OF ANESTHETIC Vital Signs in Normal Range: Yes Patient Participated in Evaluation: Yes Respiratory Function Stable: Yes Airway Patent: Yes Cardiovascular Function Stable: Yes Hydration Status Stable: Yes Pain Control Satisfactory: Yes Nausea and Vomiting Control Satisfactory: Yes Mental Status Recovered: Yes Resp Rate: 18
[2017-12-20] MEDS: Docusate Sodium 100 MG Cap PO SCH (08:26)
[2017-12-20] MEDS ORDERED: Acetaminophen/HYDROcodone 325-7.5 MG Tab PO PRN (08:37)
[2017-12-20] MEDS ORDERED: Celecoxib 100 MG Cap PO SCH (09:00)
[2017-12-20] MEDS ORDERED: Aspirin 325 MG Tab PO SCH (09:00)
[2017-12-20] MEDS ORDERED: Lisinopril 5 MG Tab PO SCH (09:00)
[2017-12-20] MEDS ORDERED: Pravastatin 40 MG Tab PO SCH (09:00)
--- NOTE | 2017-12-20 09:06 | PCM.PN ---
- General Info Date of Service: 12/20/17 Admission Dx/Problem (Free Text): Admission Diagnosis/Problem Admission Diagnosis/Problem Hip replacement planned Functional Status: Reports: Pain Controlled - Review of Systems General: Reports: No Symptoms. Denies: Fever, Weakness - Patient Data Vitals - Most Recent: Last Vital Signs Temp 98.2 F 12/20/17 07:44 Pulse 78 12/20/17 07:44 Resp 18 12/20/17 08:07 BP 144/78 H 12/20/17 08:26 Pulse Ox 96 12/20/17 07:44 Weight - Most Recent: 176.901 kg I&O - Last 24 Hours: Intake & Output 12/19/17 12/20/17 12/20/17 22:59 06:59 14:59 Intake Total 800 Output Total 1000 Balance -200 Lab Results Last 24 Hours: Laboratory Results - last 24 hr 12/19/17 12/19/17 12/20/17 Range/Units 11:35 16:01 05:50 WBC 10.95 (4.0-11.0) K/uL RBC 4.65 (4.50-5.90) M/uL Hgb 14.0 (13.0-17.0) g/dL Hct 42.3 (38.0-50.0) % MCV 91.0 (80.0-98.0) fL MCH 30.1 (27.0-32.0) pg MCHC 33.1 (31.0-37.0) g/dL RDW Std Deviation 47.9 (28.0-62.0) fl RDW Coeff of Arin 14 (11.0-15.0) % Plt Count 139 L (150-400) K/uL MPV 10.30 (7.40-12.00) fL Neut % (Auto) 81.9 H (48.0-80.0) % Lymph % (Auto) 9.0 L (16.0-40.0) % [place] % (Auto) 7.8 (0.0-15.0) % Eos % (Auto) 1.1 (0.0-7.0) % Baso % (Auto) 0.2 (0.0-1.5) % Neut # (Auto) 9.0 H (1.4-5.7) K/uL Lymph # (Auto) 1.0 (0.6-2.4) K/uL [place] # (Auto) 0.9 H (0.0-0.8) K/uL Eos # (Auto) 0.1 (0.0-0.7) K/uL Baso # (Auto) 0.0 (0.0-0.1) K/uL Nucleated RBC % 0.0 /100WBC Nucleated RBCs # 0 K/uL Sodium (136-148) mmol/L Potassium (3.5-5.1) mmol/L Chloride (98-107) mmol/L Carbon Dioxide (21.0-32.0) mmol/L BUN (7.0-18.0) mg/dL Creatinine (0.8-1.3) mg/dL Est Cr Clr Drug Dosing mL/min Estimated GFR (MDRD) ml/min Glucose (74-106) mg/dL POC Glucose 85 90 (60-110) mg/dL Calcium (8.5-10.1) mg/dL 12/20/17 12/20/17 Range/Units 05:50 06:17 WBC (4.0-11.0) K/uL RBC (4.50-5.90) M/uL Hgb (13.0-17.0) g/dL Hct (38.0-50.0) % MCV (80.0-98.0) fL MCH (27.0-32.0) pg MCHC (31.0-37.0) g/dL RDW Std Deviation (28.0-62.0) fl RDW Coeff of Arin (11.0-15.0) % Plt Count (150-400) K/uL MPV (7.40-12.00) fL Neut % (Auto) (48.0-80.0) % Lymph % (Auto) (16.0-40.0) % [place] % (Auto) (0.0-15.0) % Eos % (Auto) (0.0-7.0) % Baso % (Auto) (0.0-1.5) % Neut # (Auto) (1.4-5.7) K/uL Lymph # (Auto) (0.6-2.4) K/uL [place] # (Auto) (0.0-0.8) K/uL Eos # (Auto) (0.0-0.7) K/uL Baso # (Auto) (0.0-0.1) K/uL Nucleated RBC % /100WBC Nucleated RBCs # K/uL Sodium 136 (136-148) mmol/L Potassium 4.7 (3.5-5.1) mmol/L Chloride 104 (98-107) mmol/L Carbon Dioxide 28.2 (21.0-32.0) mmol/L BUN 17 (7.0-18.0) mg/dL Creatinine 1.1 (0.8-1.3) mg/dL Est Cr Clr Drug Dosing 85.35 mL/min Estimated GFR (MDRD) > 60.0 ml/min Glucose 116 H (74-106) mg/dL POC Glucose 98 (60-110) mg/dL Calcium 8.7 (8.5-10.1) mg/dL Med Orders - Current: Current Medications Hydrocodone Bitart/Acetaminophen ([place] 325-7.5 Mg) 2 tab PO Q4H PRN PRN Reason: Pain (moderate 4-6) Al Hydroxide/Mg Hydroxide (Mag-Al Plus) 30 ml PO Q4H PRN PRN Reason: indigestion Aspirin (Aspirin) 325 mg PO BID [facility] Last Admin: 12/20/17 08:26 Dose: 325 mg Bisacodyl (Dulcolax) 10 mg RECTAL DAILY PRN PRN Reason: Constipation Celecoxib (Celebrex) 200 mg PO DAILY [facility] Last Admin: 12/20/17 08:26 Dose: 200 mg Diphenhydramine HCl (Benadryl) 25 - 50 mg PO Q6H PRN PRN Reason: Itching Docusate Sodium (Colace) 100 mg PO BID [facility] Last Admin: 12/20/17 08:26 Dose: 100 mg Lactated Ringer's (Ringers, Lactated) 1,000 mls @ 125 mls/hr IV ASDIRECTED [facility] Last Admin: 12/19/17 21:53 Dose: 125 mls/hr Insulin Aspart (Novolog) 0 unit SUBCUT TIDAC [facility]; Protocol Last Admin: 12/20/17 06:53 Dose: Not Given Lisinopril (Prinivil) 5 mg PO DAILY [facility] Last Admin: 12/20/17 08:26 Dose: 5 mg Morphine Sulfate (Morphine) 1 - 3 mg IVPUSH Q3H PRN PRN Reason: Pain Last Admin: 12/20/17 03:42 Dose: 1 mg Ondansetron HCl (Zofran) 4 mg IV Q6HR PRN PRN Reason: NAUSEA/VOMITING Pravastatin Sodium (Pravachol) 10 mg PO DAILY [facility] Last Admin: 12/20/17 08:27 Dose: 10 mg Sodium Chloride (Saline Flush) 10 ml FLUSH ASDIRECTED PRN PRN Reason: Keep Vein Open Sodium Chloride (Saline Flush) 2.5 ml FLUSH ASDIRECTED PRN PRN Reason: Keep Vein Open Sodium Chloride (Saline Flush) 10 ml FLUSH ASDIRECTED PRN PRN Reason: Keep Vein Open Sodium Chloride (Saline Flush) 2.5 ml FLUSH ASDIRECTED PRN PRN Reason: Keep Vein Open Discontinued Medications Hydrocodone Bitart/Acetaminophen ([place] 325-5 Mg) 1 - 2 tab PO Q4H PRN PRN Reason: Pain Last Admin: 12/20/17 08:23 Dose: 2 tab Cefazolin Sodium (Ancef) Confirm Administered Dose 2 gm .ROUTE .STK-MED ONE Stop: 12/19/17 10:57 Fentanyl (Sublimaze) Confirm Administered Dose 100 mcg .ROUTE .STK-MED ONE Stop: 12/19/17 10:53 Cefazolin Sodium/Dextrose 2 gm (/ Premix) 50 mls @ 50 mls/hr IV ONETIME ONE Stop: 12/19/17 08:05 Last Admin: 12/19/17 14:56 Dose: Not Given Sodium Chloride (Normal Saline) Confirm Administered Dose 20 mls @ as directed .ROUTE .STK-MED ONE Stop: 12/19/17 10:57 Cefazolin Sodium/Dextrose 2 gm (/ Premix) 50 mls @ 100 mls/hr IV Q8H [facility] Stop: 12/20/17 05:29 Last Admin: 12/20/17 04:01 Dose: 100 mls/hr Lidocaine (Xylocaine-Mpf 2%) Confirm Administered Dose 5 ml .ROUTE .STK-MED ONE Stop: 12/19/17 10:52 Lidocaine HCl (Xylocaine-Mpf 1%) Confirm Administered Dose 5 ml .ROUTE .STK-MED ONE Stop: 12/19/17 13:21 Midazolam HCl (Versed 1 Mg/Ml) Confirm Administered Dose 2 mg .ROUTE .STK-MED ONE Stop: 12/19/17 10:53 Octyl Cyanoacrylate (Dermabond Prineo) 1 applic TOP .STK-MED ONE Stop: 12/19/17 07:27 Canagliflozin/Metformin Hcl [ Invokamet 150-500 Mg Tablet 1 Tablet 1 each PO BID [facility] Phenylephrine HCl (Phenylephrine In Ns 100 Mcg/Ml) Confirm Administered Dose 1 mg .ROUTE .STK-MED ONE Stop: 12/19/17 13:45 Propofol (Diprivan 20 Ml) Confirm Administered Dose 600 mg .ROUTE .STK-MED ONE Stop: 12/19/17 10:53 Propofol (Diprivan 20 Ml) Confirm Administered Dose 600 mg .ROUTE .STK-MED ONE Stop: 12/19/17 13:14 Propofol (Diprivan 20 Ml) Confirm Administered Dose 200 mg .ROUTE .STK-MED ONE Stop: 12/19/17 13:49 Propofol (Diprivan 20 Ml) Confirm Administered Dose 400 mg .ROUTE .STK-MED ONE Stop: 12/19/17 13:55 Tranexamic Acid (Cyklokapron) 2,000 mg IV ONETIME ONE Stop: 12/19/17 13:01 Last Admin: 12/19/17 14:56 Dose: Not Given - Problem List & Annotations (1) Status post total replacement of left hip SNOMED Code(s): 225241667458, 582531577251 Code(s): Z96.642 - PRESENCE OF LEFT ARTIFICIAL HIP JOINT Status: Acute Current Visit: Yes (2) DM type 2 (diabetes mellitus, type 2) SNOMED Code(s): 01314300 Code(s): E11.9 - TYPE 2 DIABETES MELLITUS WITHOUT COMPLICATIONS Status: Acute Current Visit: Yes Qualifiers: Diabetes mellitus termite control service representative insulin use: without termite control service representative use Diabetes mellitus complication status: without complication Qualified Code(s): E11.9 - Type 2 diabetes mellitus without complications (3) Elevated LDL cholesterol level SNOMED Code(s): 231505214 Code(s): E78.00 - PURE HYPERCHOLESTEROLEMIA, UNSPECIFIED Status: Acute Current Visit: Yes (4) SLADE on CPAP SNOMED Code(s): 47155452 Code(s): G47.33 - OBSTRUCTIVE SLEEP APNEA (ADULT) (PEDIATRIC); Z99.89 - DEPENDENCE ON OTHER ENABLING MACHINES AND DEVICES Status: Acute Current Visit: Yes (5) Obesity SNOMED Code(s): 799889730, 864281150 Code(s): E66.9 - OBESITY, UNSPECIFIED Status: Acute Current Visit: No - My Orders Last 24 Hours: My Active Orders 12/19/17 15:26 Blood Glucose Check, Bedside [RC] TIDAC 12/19/17 17:00 Insulin Aspart [NovoLOG] See Protocol SUBCUT TIDAC
--- NOTE | 2017-12-20 09:09 | PCM.CONSN ---
- General Info Date of Service: 12/20/17 Admission Dx/Problem (Free Text): S/P L anterior ERIC Subjective Update: Sitting up in the chair, doing well. Having some L hip discomfort. Denies chest pain, SOB or other concerns. Functional Status: Reports: Pain Controlled, Tolerating Diet, Ambulating, Urinating - Review of Systems General: Reports: No Symptoms. Denies: Fever, Weakness, Fatigue, Malaise HEENT: Reports: No Symptoms. Denies: Headaches, Sore Throat, Rhinitis, Visual Changes Pulmonary: Reports: No Symptoms. Denies: Shortness of Breath, Pleuritic Chest Pain, Cough, Sputum Cardiovascular: Reports: No Symptoms. Denies: Chest Pain, Palpitations, Dyspnea on Exertion Gastrointestinal: Reports: No Symptoms. Denies: Abdominal Pain, Nausea, Vomiting Genitourinary: Reports: No Symptoms. Denies: Dysuria, Frequency, Burning Musculoskeletal: Reports: No Symptoms Skin: Reports: No Symptoms Neurological: Reports: No Symptoms Psychiatric: Reports: No Symptoms - Patient Data Vitals - Most Recent: Last Vital Signs Temp 98.2 F 12/20/17 07:44 Pulse 78 12/20/17 07:44 Resp 18 12/20/17 08:07 BP 144/78 H 12/20/17 08:26 Pulse Ox 96 12/20/17 07:44 Weight - Most Recent: 176.901 kg I&O - Last 24 Hours: Intake & Output 12/19/17 12/20/17 12/20/17 22:59 06:59 14:59 Intake Total 800 Output Total 1000 Balance -200 Lab Results Last 24 Hours: Laboratory Results - last 24 hr 12/19/17 12/19/17 12/20/17 Range/Units 11:35 16:01 05:50 WBC 10.95 (4.0-11.0) K/uL RBC 4.65 (4.50-5.90) M/uL Hgb 14.0 (13.0-17.0) g/dL Hct 42.3 (38.0-50.0) % MCV 91.0 (80.0-98.0) fL MCH 30.1 (27.0-32.0) pg MCHC 33.1 (31.0-37.0) g/dL RDW Std Deviation 47.9 (28.0-62.0) fl RDW Coeff of Arin 14 (11.0-15.0) % Plt Count 139 L (150-400) K/uL MPV 10.30 (7.40-12.00) fL Neut % (Auto) 81.9 H (48.0-80.0) % Lymph % (Auto) 9.0 L (16.0-40.0) % [place] % (Auto) 7.8 (0.0-15.0) % Eos % (Auto) 1.1 (0.0-7.0) % Baso % (Auto) 0.2 (0.0-1.5) % Neut # (Auto) 9.0 H (1.4-5.7) K/uL Lymph # (Auto) 1.0 (0.6-2.4) K/uL [place] # (Auto) 0.9 H (0.0-0.8) K/uL Eos # (Auto) 0.1 (0.0-0.7) K/uL Baso # (Auto) 0.0 (0.0-0.1) K/uL Nucleated RBC % 0.0 /100WBC Nucleated RBCs # 0 K/uL Sodium (136-148) mmol/L Potassium (3.5-5.1) mmol/L Chloride (98-107) mmol/L Carbon Dioxide (21.0-32.0) mmol/L BUN (7.0-18.0) mg/dL Creatinine (0.8-1.3) mg/dL Est Cr Clr Drug Dosing mL/min Estimated GFR (MDRD) ml/min Glucose (74-106) mg/dL POC Glucose 85 90 (60-110) mg/dL Calcium (8.5-10.1) mg/dL 12/20/17 12/20/17 Range/Units 05:50 06:17 WBC (4.0-11.0) K/uL RBC (4.50-5.90) M/uL Hgb (13.0-17.0) g/dL Hct (38.0-50.0) % MCV (80.0-98.0) fL MCH (27.0-32.0) pg MCHC (31.0-37.0) g/dL RDW Std Deviation (28.0-62.0) fl RDW Coeff of Arin (11.0-15.0) % Plt Count (150-400) K/uL MPV (7.40-12.00) fL Neut % (Auto) (48.0-80.0) % Lymph % (Auto) (16.0-40.0) % [place] % (Auto) (0.0-15.0) % Eos % (Auto) (0.0-7.0) % Baso % (Auto) (0.0-1.5) % Neut # (Auto) (1.4-5.7) K/uL Lymph # (Auto) (0.6-2.4) K/uL [place] # (Auto) (0.0-0.8) K/uL Eos # (Auto) (0.0-0.7) K/uL Baso # (Auto) (0.0-0.1) K/uL Nucleated RBC % /100WBC Nucleated RBCs # K/uL Sodium 136 (136-148) mmol/L Potassium 4.7 (3.5-5.1) mmol/L Chloride 104 (98-107) mmol/L Carbon Dioxide 28.2 (21.0-32.0) mmol/L BUN 17 (7.0-18.0) mg/dL Creatinine 1.1 (0.8-1.3) mg/dL Est Cr Clr Drug Dosing 85.35 mL/min Estimated GFR (MDRD) > 60.0 ml/min Glucose 116 H (74-106) mg/dL POC Glucose 98 (60-110) mg/dL Calcium 8.7 (8.5-10.1) mg/dL Med Orders - Current: Current Medications Hydrocodone Bitart/Acetaminophen ([place] 325-7.5 Mg) 2 tab PO Q4H PRN PRN Reason: Pain (moderate 4-6) Al Hydroxide/Mg Hydroxide (Mag-Al Plus) 30 ml PO Q4H PRN PRN Reason: indigestion Aspirin (Aspirin) 325 mg PO BID [facility] Last Admin: 12/20/17 08:26 Dose: 325 mg Bisacodyl (Dulcolax) 10 mg RECTAL DAILY PRN PRN Reason: Constipation Celecoxib (Celebrex) 200 mg PO DAILY [facility] Last Admin: 12/20/17 08:26 Dose: 200 mg Diphenhydramine HCl (Benadryl) 25 - 50 mg PO Q6H PRN PRN Reason: Itching Docusate Sodium (Colace) 100 mg PO BID [facility] Last Admin: 12/20/17 08:26 Dose: 100 mg Lactated Ringer's (Ringers, Lactated) 1,000 mls @ 125 mls/hr IV ASDIRECTED [facility] Last Admin: 12/19/17 21:53 Dose: 125 mls/hr Insulin Aspart (Novolog) 0 unit SUBCUT TIDAC [facility]; Protocol Last Admin: 12/20/17 06:53 Dose: Not Given Lisinopril (Prinivil) 5 mg PO DAILY [facility] Last Admin: 12/20/17 08:26 Dose: 5 mg Morphine Sulfate (Morphine) 1 - 3 mg IVPUSH Q3H PRN PRN Reason: Pain Last Admin: 12/20/17 03:42 Dose: 1 mg Ondansetron HCl (Zofran) 4 mg IV Q6HR PRN PRN Reason: NAUSEA/VOMITING Pravastatin Sodium (Pravachol) 10 mg PO DAILY [facility] Last Admin: 12/20/17 08:27 Dose: 10 mg Sodium Chloride (Saline Flush) 10 ml FLUSH ASDIRECTED PRN PRN Reason: Keep Vein Open Sodium Chloride (Saline Flush) 2.5 ml FLUSH ASDIRECTED PRN PRN Reason: Keep Vein Open Sodium Chloride (Saline Flush) 10 ml FLUSH ASDIRECTED PRN PRN Reason: Keep Vein Open Sodium Chloride (Saline Flush) 2.5 ml FLUSH ASDIRECTED PRN PRN Reason: Keep Vein Open Discontinued Medications Hydrocodone Bitart/Acetaminophen ([place] 325-5 Mg) 1 - 2 tab PO Q4H PRN PRN Reason: Pain Last Admin: 12/20/17 08:23 Dose: 2 tab Cefazolin Sodium (Ancef) Confirm Administered Dose 2 gm .ROUTE .STK-MED ONE Stop: 12/19/17 10:57 Fentanyl (Sublimaze) Confirm Administered Dose 100 mcg .ROUTE .STK-MED ONE Stop: 12/19/17 10:53 Cefazolin Sodium/Dextrose 2 gm (/ Premix) 50 mls @ 50 mls/hr IV ONETIME ONE Stop: 12/19/17 08:05 Last Admin: 12/19/17 14:56 Dose: Not Given Sodium Chloride (Normal Saline) Confirm Administered Dose 20 mls @ as directed .ROUTE .STK-MED ONE Stop: 12/19/17 10:57 Cefazolin Sodium/Dextrose 2 gm (/ Premix) 50 mls @ 100 mls/hr IV Q8H [facility] Stop: 12/20/17 05:29 Last Admin: 12/20/17 04:01 Dose: 100 mls/hr Lidocaine (Xylocaine-Mpf 2%) Confirm Administered Dose 5 ml .ROUTE .STK-MED ONE Stop: 12/19/17 10:52 Lidocaine HCl (Xylocaine-Mpf 1%) Confirm Administered Dose 5 ml .ROUTE .STK-MED ONE Stop: 12/19/17 13:21 Midazolam HCl (Versed 1 Mg/Ml) Confirm Administered Dose 2 mg .ROUTE .STK-MED ONE Stop: 12/19/17 10:53 Octyl Cyanoacrylate (Dermabond Prineo) 1 applic TOP .STK-MED ONE Stop: 12/19/17 07:27 Canagliflozin/Metformin Hcl [ Invokamet 150-500 Mg Tablet 1 Tablet 1 each PO BID [facility] Phenylephrine HCl (Phenylephrine In Ns 100 Mcg/Ml) Confirm Administered Dose 1 mg .ROUTE .STK-MED ONE Stop: 12/19/17 13:45 Propofol (Diprivan 20 Ml) Confirm Administered Dose 600 mg .ROUTE .STK-MED ONE Stop: 12/19/17 10:53 Propofol (Diprivan 20 Ml) Confirm Administered Dose 600 mg .ROUTE .STK-MED ONE Stop: 12/19/17 13:14 Propofol (Diprivan 20 Ml) Confirm Administered Dose 200 mg .ROUTE .STK-MED ONE Stop: 12/19/17 13:49 Propofol (Diprivan 20 Ml) Confirm Administered Dose 400 mg .ROUTE .STK-MED ONE Stop: 12/19/17 13:55 Tranexamic Acid (Cyklokapron) 2,000 mg IV ONETIME ONE Stop: 12/19/17 13:01 Last Admin: 12/19/17 14:56 Dose: Not Given - Exam General: Alert, Oriented, Cooperative, No Acute Distress Neck: Supple Lungs: Clear to Auscultation, Normal Respiratory Effort Cardiovascular: Regular Rate, Regular Rhythm GI/Abdominal Exam: Normal Bowel Sounds, Soft, Non-Tender, No Organomegaly, No Distention, No Abnormal Bruit, No Mass, Pelvis Stable Extremities: Normal Inspection, Normal Range of Motion, Non-Tender, No Pedal Edema, Normal Capillary Refill Wound/Incisions: Dressing Dry and Intact Neurological: No New Focal Deficit Psy/Mental Status: Alert, Normal Affect, Normal Mood Consult PN Assessment/Plan Procedures: Procedures ASSAY OF NATRIURETIC PEPTIDE (01/23/15) ASSAY OF TROPONIN QUANT (01/23/15) ASSAY THYROID STIM HORMONE (03/22/16) CHEST X-RAY 2VW FRONTAL&LATL (03/07/15) COMPLETE CBC AUTOMATED (12/04/17) COMPLETE CBC W/AUTO DIFF WBC (01/22/17) COMPREHEN METABOLIC PANEL (01/22/17) CT ABD & PELVIS W/O CONTRAST (02/02/16) CT THORAX W/O DYE (06/17/17) DRAIN/INJ JOINT/BURSA W/O US (10/16/17) ELECTROCARDIOGRAM TRACING (12/04/17) EMERGENCY DEPT VISIT (01/22/17) EMERGENCY DEPT VISIT (03/25/16) EMERGENCY DEPT VISIT (02/02/16) EMERGENCY DEPT VISIT (01/23/15) FIBRIN DEGRADATION QUANT (01/23/15) GLUCOSE BLOOD TEST (03/25/16) GLYCOSYLATED HEMOGLOBIN TEST (11/29/17) HYDRATE IV INFUSION ADD-ON (02/02/16) HYDRATION IV INFUSION INIT (01/22/17) LIPID PANEL (05/31/17) MEDICAL NUTRITION INDIV IN (04/05/16) METABOLIC PANEL TOTAL CA (11/29/17) NEEDLE LOCALIZATION BY XRAY (10/16/17) POLYSOM 6/>YRS CPAP 4/> PARM (05/24/16) PROTHROMBIN TIME (12/04/17) ROUTINE VENIPUNCTURE (12/04/17) THER/PROPH/DIAG INJ IV PUSH (02/02/16) THER/PROPH/DIAG INJ SC/IM (01/23/15) THROMBOPLASTIN TIME PARTIAL (01/23/15) TX/PRO/DX INJ NEW DRUG ADDON (02/02/16) UR ALBUMIN SEMIQUANTITATIVE (05/31/17) URINALYSIS AUTO W/SCOPE (12/04/17) URINE CULTURE/COLONY COUNT (02/02/16) US EXAM SCROTUM (02/02/16) VASCULAR STUDY (02/02/16) X-RAY EXAM CHEST 2 VIEWS (12/04/17) X-RAY EXAM HIP UNI 2-3 VIEWS (10/15/17) (1) Status post total replacement of left hip SNOMED Code(s): 957985454657, 476001966386 Code(s): Z96.642 - PRESENCE OF LEFT ARTIFICIAL HIP JOINT Current Visit: Yes (2) DM type 2 (diabetes mellitus, type 2) SNOMED Code(s): 97822336 Code(s): E11.9 - TYPE 2 DIABETES MELLITUS WITHOUT COMPLICATIONS Current Visit: Yes Qualifiers: Diabetes mellitus [facility] insulin use: without ocean transportation intermediary use Diabetes mellitus complication status: without complication Qualified Code(s): E11.9 - Type 2 diabetes mellitus without complications (3) Elevated LDL cholesterol level SNOMED Code(s): 959153379 Code(s): E78.00 - PURE HYPERCHOLESTEROLEMIA, UNSPECIFIED Current Visit: Yes (4) SLADE on CPAP SNOMED Code(s): 68245983 Code(s): G47.33 - OBSTRUCTIVE SLEEP APNEA (ADULT) (PEDIATRIC); Z99.89 - DEPENDENCE ON OTHER ENABLING MACHINES AND DEVICES Current Visit: Yes (5) Obesity SNOMED Code(s): 296794230, 911737939 Code(s): E66.9 - OBESITY, UNSPECIFIED Current Visit: No Problem List Initiated/Reviewed/Updated: Yes My Orders Last 24 Hours: My Active Orders 12/19/17 15:26 Blood Glucose Check, Bedside [RC] TIDAC 12/19/17 17:00 Insulin Aspart [NovoLOG] See Protocol SUBCUT TIDAC Plan: This 62 year old male admitted with L anterior ERIC. Hospitalist service consulted for medical management of DM 1. S/P L ant ERIC: Per Orthopedics 2. DM type 2: Stable, very well controlled. A1c 5.9. Hold Invokamet while admitted, may restart on discharge. Novolog SSI. Check BS TIDAC. Continue Lisinopril and statin. Monitor BMP. 3. SLADE: On CPAP, did bring for use in the hospital. VTE prophylaxis: ASA BID Dispo: Ok from medical stand point for discharge home.
[2017-12-20 11:39] VITALS: BP 131/55
== END 2017-12-20 13:30 | disposition home or self-care (01) | DRG 301 ==
LOC: MW.MS 10:45
PROVIDERS: ADMIT Orthopaedic Surgery; ATTEND Orthopaedic Surgery
PROC: 0SRB03A Replacement of Left Hip Joint with Ceramic Synthetic Substitute, Uncemented, Open Approach (ICD-10-PCS; principal; 2017-12-19)
DX: M16.12 Unilateral primary osteoarthritis, left hip (principal); G47.33 Obstructive sleep apnea (adult) (pediatric); E11.9 Type 2 diabetes mellitus without complications; E78.00 Pure hypercholesterolemia, unspecified; E66.9 Obesity, unspecified; Z68.43 Body mass index [BMI] 50.0-59.9, adult; Z79.899 Other long term (current) drug therapy
CPT/HCPCS: 76000; 76000-26; 80048; 82962; 85025; 97110-GP; 97161-GP; A9270-GY; J0690; J2250; J2270; J2704; J3010; J7120

== ENCOUNTER 2018-11-21 20:26 | Inpatient (IN) | payer BC ==
[2018-11-21] MEDS ORDERED: Sodium Chloride 0.9% 2.5 ML Syringe FLUSH PRN (20:31)
[2018-11-21] MEDS ORDERED: Sodium Chloride 0.9% 10 ML Syringe FLUSH PRN (20:31)
--- NOTE | 2018-11-21 20:39 | EDM.PDOC ---
<Razia Ortiz - Last Filed: 11/21/18 21:47> ED HPI GENERAL MEDICAL PROBLEM - General Chief Complaint: Chest Pain Stated Complaint: out of breath/back pain Time Seen by Provider: 11/21/18 20:38 Source of Information: Reports: Patient History Limitations: Reports: No Limitations - History of Present Illness INITIAL COMMENTS - FREE TEXT/NARRATIVE: HISTORY AND PHYSICAL: History of present illness: Patient is a 63-year-old male here with complaint of shortness of breath. He states that yesterday he was getting in his pickup and he pulled himself up using the handle bar and felt a strain on the left side of his chest wall. He reports he went to the chiropractor today and had an adjustment and after this he started feeling short of breath. He states he can't walk more than 10 feet before he is feeling short of breath and he is having pain on the left side of the chest with deep breaths. He states he has had a bit of a cough since yesterday but denies fevers, chills, nausea, vomiting, diaphoresis, abdominal pain, urinary or bowel symptoms. Patient has past medical history of prediabetes but denies any cardiac history. Review of systems: As per history of present illness and below otherwise all systems reviewed and negative. Past medical history: As per history of present illness and as reviewed below otherwise noncontributory. Surgical history: As per history of present illness and as reviewed below otherwise noncontributory. Social history: No reported history of drug or alcohol abuse. Family history: As per history of present illness and as reviewed below otherwise noncontributory. Physical exam: General: Patient sitting comfortably in no acute distress and nontoxic appearing HEENT: Atraumatic, normocephalic, pupils reactive, negative for conjunctival pallor or scleral icterus, mucous membranes moist, throat clear, neck supple, nontender, trachea midline. No meningeal signs. Lungs: Breath sounds diminished throughout, chest nontender. Heart: S1S2, regular, negative for clicks, rubs, or overt murmur. Abdomen: Soft, nondistended, nontender. Negative for masses or hepatosplenomegaly. Negative for costovertebral tenderness. No rigidity, rebound , guarding. Pelvis: Stable nontender. Genitourinary: Deferred. Rectal: Deferred. Extremities: Atraumatic, negative for cords or calf pain. Neurovascular unremarkable. Neuro: Awake, alert, oriented. Cranial nerves II through XII unremarkable. Cerebellum unremarkable. Motor and sensory unremarkable throughout. Exam nonfocal. Notes: EKG shows sinus tachycardia Diagnostics: CBC, CMP, troponin, PT/INR, EKG, chest x-ray, d-dimer, CTA Therapeutics: DuoNeb SoluMedrol 125mg IV 1L Normal Saline IV Prescriptions: Impression: Dyspnea Plan: Signed out to Dr. Vidales at 2200 Definitive disposition and diagnosis as appropriate pending reevaluation and review of above. lreft lower breast Pain Score (Numeric/FACES): 7 - Related Data Allergies Allergy/AdvReac Type Severity Reaction Status Date / Time No Known Allergies Allergy Verified 11/21/18 20:35 Home Meds: Home Meds Aspirin [Lo-Dose Aspirin EC] 81 mg PO DAILY 12/17/17 [History] Lisinopril 5 mg PO DAILY 12/17/17 [History] Pravastatin Sodium 10 mg PO DAILY 12/17/17 [History] Canagliflozin/Metformin HCl [Invokamet 150-500 mg Tablet] 50 - 500 mg PO DAILY 11/21/18 [History] Past Medical History - Past Health History Medical/Surgical History: Denies Medical/Surgical History HEENT History: Reports: None Cardiovascular History: Reports: High Cholesterol Respiratory History: Reports: Sleep Apnea Other Respiratory History: uses CPAP Gastrointestinal History: Reports: None Genitourinary History: Reports: Renal Calculus Musculoskeletal History: Reports: Fracture, Osteoarthritis Other Musculoskeletal History: DJD, hx fx ankle Neurological History: Reports: None Psychiatric History: Reports: None Endocrine/Metabolic History: Reports: Diabetes, Type II, Obesity/BMI 30+, Other (See Below) Other Endocrine/Metabolic History: pt states "I'm pre-diabetic type II" Hematologic History: Reports: None Immunologic History: Reports: None Oncologic (Cancer) History: Reports: None Dermatologic History: Reports: None - Infectious Disease History Infectious Disease History: Reports: Chicken Pox, Measles, Mumps - Past Surgical History Head Surgeries/Procedures: Reports: None HEENT Surgical History: Reports: Adenoidectomy, Tonsillectomy Cardiovascular Surgical History: Reports: None Respiratory Surgical History: Reports: None Male Surgical History: Reports: None Endocrine Surgical History: Reports: None Musculoskeletal Surgical History: Reports: Hip Replacement Social & Family History - Family History Family Medical History: Noncontributory - Tobacco Use Smoking Status *Q: Never Smoker Second Hand Smoke Exposure: No - Caffeine Use Caffeine Use: Reports: Soda - Recreational Drug Use Recreational Drug Use: No - Living Situation & Occupation Living situation: Reports: ED ROS GENERAL - Review of Systems Review Of Systems: ROS reveals no pertinent complaints other than HPI. ED EXAM, GENERAL - Physical Exam Exam: See Below (See dictation) Course - Vital Signs Last Recorded V/S: Last Vital Signs Temp 98.2 F 11/21/18 23:45 Pulse 90 11/21/18 23:45 Resp 20 11/21/18 23:45 BP 125/53 L 11/21/18 23:45 Pulse Ox 92 L 11/21/18 23:45 - Orders/Labs/Meds Orders: Active Orders 24 hr Category Date Time Status EKG Documentation Completion [RC] STAT Care 11/21/18 20:32 Active RT Aerosol Therapy [RC] ASDIRECTED Care 11/21/18 20:46 Active Heparin Sod,Pork In 0.45% Nacl [Heparin-1/2Ns 25,000 Med 11/21/18 23:45 Active Units/500] 25,000 unit in 500 ml IV TITRATE Sodium Chloride 0.9% [Saline Flush] Med 11/21/18 20:31 Active 10 ml FLUSH ASDIRECTED PRN Sodium Chloride 0.9% [Saline Flush] Med 11/21/18 20:31 Active 2.5 ml FLUSH ASDIRECTED PRN Saline Lock Insert [OM.PC] Stat Oth 11/21/18 20:31 Ordered Medication Orders Heparin Sodium/Sodium Chloride (Heparin-1/2ns 25,000 Units/500) 25,000 unit in 500 mls @ 63.684 mls/hr IV TITRATE SHASHI; Protocol Sodium Chloride (Saline Flush) 10 ml FLUSH ASDIRECTED PRN PRN Reason: Keep Vein Open Sodium Chloride (Saline Flush) 2.5 ml FLUSH ASDIRECTED PRN PRN Reason: Keep Vein Open Labs: Laboratory Tests 11/21/18 11/21/18 11/21/18 Range/Units 20:45 20:45 20:45 WBC 11.06 H (4.0-11.0) K/uL RBC 5.25 (4.50-5.90) M/uL Hgb 15.9 (13.0-17.0) g/dL Hct 47.0 (38.0-50.0) % MCV 89.5 (80.0-98.0) fL MCH 30.3 (27.0-32.0) pg MCHC 33.8 (31.0-37.0) g/dL RDW Std Deviation 46.4 (28.0-62.0) fl RDW Coeff of Arin 14 (11.0-15.0) % Plt Count 141 L (150-400) K/uL MPV 10.80 (7.40-12.00) fL Neut % (Auto) 81.8 H (48.0-80.0) % Lymph % (Auto) 8.6 L (16.0-40.0) % [place] % (Auto) 8.6 (0.0-15.0) % Eos % (Auto) 0.8 (0.0-7.0) % Baso % (Auto) 0.2 (0.0-1.5) % Neut # (Auto) 9.1 H (1.4-5.7) K/uL Lymph # (Auto) 1.0 (0.6-2.4) K/uL [place] # (Auto) 1.0 H (0.0-0.8) K/uL Eos # (Auto) 0.1 (0.0-0.7) K/uL Baso # (Auto) 0.0 (0.0-0.1) K/uL Nucleated RBC % 0.0 /100WBC Nucleated RBCs # 0 K/uL INR 1.10 D-Dimer, Quantitative (0.0-0.50) mg/L FEU Sodium 138 (136-148) mmol/L Potassium 4.5 (3.5-5.1) mmol/L Chloride 101 (98-107) mmol/L Carbon Dioxide 26.0 (21.0-32.0) mmol/L BUN 18 (7.0-18.0) mg/dL Creatinine 1.4 H (0.8-1.3) mg/dL Est Cr Clr Drug Dosing 66.23 mL/min Estimated GFR (MDRD) 51.5 ml/min Glucose 190 H (74-106) mg/dL Calcium 9.2 (8.5-10.1) mg/dL Total Bilirubin 0.9 (0.2-1.0) mg/dL AST 26 (15-37) IU/L ALT 26 (14-63) IU/L Alkaline Phosphatase 80 (46-116) U/L Troponin I < 0.050 (0.000-0.056) ng/mL Total Protein 7.8 (6.4-8.2) g/dL Albumin 3.6 (3.4-5.0) g/dL Globulin 4.2 H (2.6-4.0) g/dL Albumin/Globulin Ratio 0.9 (0.9-1.6) 11/21/18 Range/Units 20:45 WBC (4.0-11.0) K/uL RBC (4.50-5.90) M/uL Hgb (13.0-17.0) g/dL Hct (38.0-50.0) % MCV (80.0-98.0) fL MCH (27.0-32.0) pg MCHC (31.0-37.0) g/dL RDW Std Deviation (28.0-62.0) fl RDW Coeff of Arin (11.0-15.0) % Plt Count (150-400) K/uL MPV (7.40-12.00) fL Neut % (Auto) (48.0-80.0) % Lymph % (Auto) (16.0-40.0) % [place] % (Auto) (0.0-15.0) % Eos % (Auto) (0.0-7.0) % Baso % (Auto) (0.0-1.5) % Neut # (Auto) (1.4-5.7) K/uL Lymph # (Auto) (0.6-2.4) K/uL [place] # (Auto) (0.0-0.8) K/uL Eos # (Auto) (0.0-0.7) K/uL Baso # (Auto) (0.0-0.1) K/uL Nucleated RBC % /100WBC Nucleated RBCs # K/uL INR D-Dimer, Quantitative 11.07 H (0.0-0.50) mg/L FEU Sodium (136-148) mmol/L Potassium (3.5-5.1) mmol/L Chloride (98-107) mmol/L Carbon Dioxide (21.0-32.0) mmol/L BUN (7.0-18.0) mg/dL Creatinine (0.8-1.3) mg/dL Est Cr Clr Drug Dosing mL/min Estimated GFR (MDRD) ml/min Glucose (74-106) mg/dL Calcium (8.5-10.1) mg/dL Total Bilirubin (0.2-1.0) mg/dL AST (15-37) IU/L ALT (14-63) IU/L Alkaline Phosphatase (46-116) U/L Troponin I (0.000-0.056) ng/mL Total Protein (6.4-8.2) g/dL Albumin (3.4-5.0) g/dL Globulin (2.6-4.0) g/dL Albumin/Globulin Ratio (0.9-1.6) Meds: Medications Generic Name Dose Route Start Last Admin Trade Name Ubaldo PRN Reason Stop Dose Admin Heparin Sodium/Sodium Chloride 25,000 unit in 500 mls @ 63.684 mls/hr 23:45 Heparin-1/2ns 25,000 Units/500 IV TITRATE SHASHI Protocol 18 UNITS/KG/HR Sodium Chloride 10 ml 11/21/18 20:31 Saline Flush FLUSH ASDIRECTED PRN Keep Vein Open Sodium Chloride 2.5 ml 11/21/18 20:31 Saline Flush FLUSH ASDIRECTED PRN Keep Vein Open Discontinued Medications Generic Name Dose Route Start Last Admin Trade Name Ubaldo PRN Reason Stop Dose Admin Albuterol/Ipratropium 3 ml 11/21/18 20:45 11/21/18 20:53 Duoneb 3.0-0.5 Mg/3 Ml NEB 11/21/18 20:46 3 ml ONETIME ONE Administration Albuterol/Ipratropium Confirm 11/21/18 20:47 11/21/18 20:53 Duoneb 3.0-0.5 Mg/3 Ml Administered 11/21/18 20:48 Not Given Dose 3 ml .ROUTE .STK-MED ONE Heparin Sodium (Porcine) 5,000 units 11/21/18 23:16 Heparin Sodium IVPUSH 11/21/18 23:17 ONETIME ONE Sodium Chloride 1,000 mls @ 999 mls/hr 11/21/18 21:37 11/21/18 21:41 Normal Saline IV 11/21/18 22:37 999 mls/hr STAT ONE Administration Heparin Sodium/Sodium Chloride Confirm 11/21/18 23:32 Heparin-1/2ns 25,000 Units/500 Administered 11/21/18 23:33 Dose 25,000 unit in 500 mls @ as directed IV .STK-MED ONE Iopamidol 100 ml 11/21/18 22:49 11/21/18 22:49 Isovue-370 (76%) IVPUSH 11/21/18 22:50 100 ml ONETIME ONE Administration Methylprednisolone Sodium Succinate 125 mg 11/21/18 21:37 11/21/18 21:43 Solu-Medrol IVPUSH 11/21/18 21:38 125 mg ONETIME ONE Administration Departure - Departure Disposition: Admitted As Inpatient 68 Clinical Impression: Dyspnea, PE, Pulmonary embolism Referrals: PCP,None [Primary Care Provider] - Forms: ED Department Discharge - My Orders Last 24 Hours: My Active Orders 11/21/18 23:45 Heparin Sod,Pork In 0.45% Nacl [Heparin-1/2Ns 25,000 Units/500] 25,000 unit in 500 ml IV TITRATE - Assessment/Plan Last 24 Hours: My Active Orders 11/21/18 23:45 Heparin Sod,Pork In 0.45% Nacl [Heparin-1/2Ns 25,000 Units/500] 25,000 unit in 500 ml IV TITRATE <Jaison Vidales - Last Filed: 11/21/18 23:56> ED HPI GENERAL MEDICAL PROBLEM - History of Present Illness INITIAL COMMENTS - FREE TEXT/NARRATIVE: Patient was signed out to me to follow CTA which did return with a bilateral PE heparin has been ordered the 80 units per kilogram bolus followed by the drip at 18 units per kilogram I did discuss the patient case with Dr. Greene and he will be admitted to the ICU. Patient is alert in no distress at this time whatsoever speaking in full clear sentences Departure - Departure Time of Disposition: 23:56 Condition: Fair
[2018-11-21] MEDS ORDERED: Albuterol/Ipratropium 3.0-0.5 MG/3 ML Neb Soln NEB ONE (20:45)
[2018-11-21] MEDS ORDERED: Albuterol/Ipratropium 3.0-0.5 MG/3 ML Neb Soln ONE (20:47)
--- NOTE | 2018-11-21 21:19 | CR ---
INDICATION: chest pain TECHNIQUE: Chest 1 view. COMPARISON: 12/04/17 FINDINGS: Cardiovascular and mediastinum: Heart size and vasculature are normal in caliber and appearance. Mediastinum is within normal limits. Lungs and pleural space: Lungs are clear. No sign of infiltrate or mass. No sign of pleural effusion. No pneumothorax. Bones and soft tissues: No significant findings. IMPRESSION: Unremarkable chest. Dictated by: Sly Roy MD @ 11/21/2018 21:18:03 (Electronically Signed)
[2018-11-21 21:23] LABS: CHLORIDE,CL 101 mmol/L (98-107); SODIUM,NA 138 mmol/L (136-148)
[2018-11-21] MEDS ORDERED: Sodium Chloride 0.9% 1,000 ML IV ONE (21:37)
[2018-11-21] MEDS ORDERED: methylPREDNISolone Sodium Succinate 125 MG/2 ML SDV IVPUSH ONE (21:37)
[2018-11-21] MEDS ORDERED: Iopamidol 755 Mg/ML 100 ML Bottle IVPUSH ONE (22:49)
[2018-11-21] MEDS ORDERED: Heparin Sodium 5,000 Units/ML Vial IVPUSH ONE (23:16)
--- NOTE | 2018-11-21 23:19 | CT ---
INDICATION: Chest pain and shortness of breath. Elevated D-dimer. TECHNIQUE: CT chest PE was acquired with 100 cc Isovue 370 IV contrast. COMPARISON: None. FINDINGS: Heart and vasculature: There are relatively large bilateral and central pulmonary emboli. No sign of right heart strain. Heart size is normal. Thoracic aorta and pulmonary artery are normal in caliber. Lungs and pleural: Ill-defined infiltrates are in the left lower lobe. Remainder of the lungs are clear. Small left pleural effusion is present. Lymph nodes/mediastinum: No mediastinal, hilar, or axillary adenopathy. Thyroid gland is normal. Chest wall: No masses. Upper abdomen: Normal. Bones: Unremarkable for age. IMPRESSION: 1. Bilateral relatively large in central pulmonary emboli are present. 2. Postobstructive infarct or atelectasis is present in the left lower lobe with a small adjacent pleural effusion. Results discussed with Dr. Booth at 2315 hours. Dictated by Micky Martin MD @ 11/21/2018 11:17:02 PM Please note that all CT scans at this facility use dose modulation, iterative reconstruction, and/or weight-based dosing when appropriate to reduce radiation dose to as low as reasonably achievable. Dictated by: Micky Martin MD @ 11/21/2018 23:17:05 (Electronically Signed)
[2018-11-21] MEDS ORDERED: Heparin Sod,Pork In 0.45% Nacl 25,000 UNIT/500 ML IV.SOLN IV ONE (23:32)
[2018-11-21] MEDS ORDERED: Heparin Sodium 5,000 Units/ML Vial IVPUSH STA (23:56)
[2018-11-21] MEDS: Heparin Sod,Pork In 0.45% Nacl 25,000 UNIT/500 ML IV.SOLN IV SCH (23:56)
[2018-11-22] MEDS ORDERED: Morphine 2 MG/ML Syringe IVPUSH ONE (01:47)
[2018-11-22] MEDS: Heparin Sod,Pork In 0.45% Nacl 25,000 UNIT/500 ML IV.SOLN IV SCH ×2 (07:09→19:37)
--- NOTE | 2018-11-22 07:37 | PCM.HP ---
H&P History of Present Illness - General Date of Service: 11/22/18 Admit Problem/Dx: Admission Diagnosis/Problem Admission Diagnosis/Problem Pulmonary embolism Source of Information: Patient History Limitations: Reports: No Limitations - History of Present Illness Initial Comments - Free Text/Narative: The patient is a 63-year-old gentleman who presented to the emergency department with the complaint shortness of breath. The patient says this started approximately 3 days ago. He thought it was related to pulling himself up and strain to his chest wall. The patient has denied any cough, sputum production, radiation of chest pain or diaphoresis. The patient says that he has had some dizziness and lightheadedness. The patient says that he pain in his lower chest wall radiating from left to right. The patient has had some recent travel without being stationary for long periods of time. The patient also has a medical history of diabetes mellitus type 2 along with obstructive sleep apnea and uses a CPAP. The patient does not use oxygen at home. Onset of Symptoms: Reports: Gradual Duration of Symptoms: Reports: Day(s): Quality: Reports: Ache, Dull Severity: Mild Improves with: Reports: Rest Worsens with: Reports: Movement Context: Reports: Activity/Exercise, Lifting, Travel Associated Symptoms: Reports: Shortness of Breath Middle Chest Pain Score (Numeric/FACES): 4 lreft lower breast Pain Score (Numeric/FACES): 7 - Related Data Allergies/Adverse Reactions: Allergies Allergy/AdvReac Type Severity Reaction Status Date / Time No Known Allergies Allergy Verified 11/21/18 20:35 Home Medications: Home Meds Lisinopril 5 mg PO DAILY 12/17/17 [History] Pravastatin Sodium 10 mg PO DAILY 12/17/17 [History] Canagliflozin/Metformin HCl [Invokamet 150-500 mg Tablet] 50 - 500 mg PO BID [History] Past Medical History - Past Health History Medical/Surgical History: Denies Medical/Surgical History HEENT History: Reports: None Cardiovascular History: Reports: High Cholesterol Respiratory History: Reports: Sleep Apnea Other Respiratory History: uses CPAP Gastrointestinal History: Reports: None Genitourinary History: Reports: Renal Calculus Musculoskeletal History: Reports: Fracture, Osteoarthritis Other Musculoskeletal History: DJD, hx fx ankle Neurological History: Reports: None Psychiatric History: Reports: None Endocrine/Metabolic History: Reports: Diabetes, Type II, Obesity/BMI 30+, Other (See Below) Other Endocrine/Metabolic History: pt states "I'm pre-diabetic type II" Hematologic History: Reports: None Immunologic History: Reports: None Oncologic (Cancer) History: Reports: None Dermatologic History: Reports: None - Infectious Disease History Infectious Disease History: Reports: Chicken Pox, Measles, Mumps - Past Surgical History Head Surgeries/Procedures: Reports: None HEENT Surgical History: Reports: Adenoidectomy, Tonsillectomy Cardiovascular Surgical History: Reports: None Respiratory Surgical History: Reports: None Male Surgical History: Reports: None Endocrine Surgical History: Reports: None Musculoskeletal Surgical History: Reports: Hip Replacement Social & Family History - Family History Family Medical History: Noncontributory - Tobacco Use Smoking Status *Q: Never Smoker Second Hand Smoke Exposure: No - Caffeine Use Caffeine Use: Reports: Soda - Alcohol Use Alcohol Use History: Yes Alcohol Use Frequency: Rarely - Recreational Drug Use Recreational Drug Use: No - Living Situation & Occupation Living situation: Reports: H&P Review of Systems - Review of Systems: Review Of Systems: See Below General: Reports: No Symptoms HEENT: Reports: No Symptoms Pulmonary: Reports: Shortness of Breath, Pleuritic Chest Pain Cardiovascular: Reports: Lightheadedness Gastrointestinal: Reports: No Symptoms Genitourinary: Reports: No Symptoms Musculoskeletal: Reports: No Symptoms Skin: Reports: No Symptoms Psychiatric: Reports: No Symptoms Neurological: Reports: No Symptoms Hematologic/Lymphatic: Reports: No Symptoms Immunologic: Reports: No Symptoms Exam - Exam Exam: See Below - Vital Signs Vital Signs: Last Vital Signs Temp 36.4 C 11/22/18 04:00 Pulse 65 11/22/18 05:00 Resp 21 H 11/22/18 05:00 BP 115/44 L 11/22/18 05:00 Pulse Ox 98 11/22/18 05:00 Weight: 182.707 kg - Exam Quality Assessment: Supplemental Oxygen General: Alert, Oriented, Cooperative HEENT: Conjunctiva Clear, EACs Clear, EOMI, Hearing Intact, Mucosa Moist & [place] , PERRLA Neck: Supple (Heavy neck), Trachea Midline Lungs: Clear to Auscultation, Normal Respiratory Effort Cardiovascular: Regular Rate, Regular Rhythm GI/Abdominal Exam: Normal Bowel Sounds, No Distention, Other (Obese) (Male) Exam: Deferred Rectal (Males) Exam: Deferred Back Exam: Normal Inspection, Full Range of Motion Extremities: Normal Inspection, Normal Range of Motion, No Pedal Edema Skin: Warm, Dry, Intact Neurological: Cranial Nerves Intact, Normal Gait Neuro Extensive - Mental Status: Alert, Oriented x3 Psychiatric: Alert, Normal Affect, Normal Mood - Patient Data Lab Results Last 24 hrs: Laboratory Results - last 24 hr 11/21/18 11/21/18 11/21/18 Range/Units 20:45 20:45 20:45 WBC 11.06 H (4.0-11.0) K/uL RBC 5.25 (4.50-5.90) M/uL Hgb 15.9 (13.0-17.0) g/dL Hct 47.0 (38.0-50.0) % MCV 89.5 (80.0-98.0) fL MCH 30.3 (27.0-32.0) pg MCHC 33.8 (31.0-37.0) g/dL RDW Std Deviation 46.4 (28.0-62.0) fl RDW Coeff of Arin 14 (11.0-15.0) % Plt Count 141 L (150-400) K/uL MPV 10.80 (7.40-12.00) fL Neut % (Auto) 81.8 H (48.0-80.0) % Lymph % (Auto) 8.6 L (16.0-40.0) % [place] % (Auto) 8.6 (0.0-15.0) % Eos % (Auto) 0.8 (0.0-7.0) % Baso % (Auto) 0.2 (0.0-1.5) % Neut # (Auto) 9.1 H (1.4-5.7) K/uL Lymph # (Auto) 1.0 (0.6-2.4) K/uL [place] # (Auto) 1.0 H (0.0-0.8) K/uL Eos # (Auto) 0.1 (0.0-0.7) K/uL Baso # (Auto) 0.0 (0.0-0.1) K/uL Neutrophils % (Manual) (48.0-80.0) % Band Neutrophils % % Lymphocytes % (Manual) (16.0-40.0) % Nucleated RBC % 0.0 /100WBC Absolute Seg Neuts (1.4-5.7) Band Neutrophils # Lymphocytes # (Manual) (0.6-2.4) Nucleated RBCs # 0 K/uL INR 1.10 APTT (18.6-31.3) SEC D-Dimer, Quantitative (0.0-0.50) mg/L FEU Sodium 138 (136-148) mmol/L Potassium 4.5 (3.5-5.1) mmol/L Chloride 101 (98-107) mmol/L Carbon Dioxide 26.0 (21.0-32.0) mmol/L BUN 18 (7.0-18.0) mg/dL Creatinine 1.4 H (0.8-1.3) mg/dL Est Cr Clr Drug Dosing 66.23 mL/min Estimated GFR (MDRD) 51.5 ml/min Glucose 190 H (74-106) mg/dL Calcium 9.2 (8.5-10.1) mg/dL Total Bilirubin 0.9 (0.2-1.0) mg/dL AST 26 (15-37) IU/L ALT 26 (14-63) IU/L Alkaline Phosphatase 80 (46-116) U/L Troponin I < 0.050 (0.000-0.056) ng/mL B-Natriuretic Peptide (<100) PG/ML Total Protein 7.8 (6.4-8.2) g/dL Albumin 3.6 (3.4-5.0) g/dL Globulin 4.2 H (2.6-4.0) g/dL Albumin/Globulin Ratio 0.9 (0.9-1.6) 11/21/18 11/22/18 11/22/18 Range/Units 20:45 02:10 02:10 WBC (4.0-11.0) K/uL RBC (4.50-5.90) M/uL Hgb (13.0-17.0) g/dL Hct (38.0-50.0) % MCV (80.0-98.0) fL MCH (27.0-32.0) pg MCHC (31.0-37.0) g/dL RDW Std Deviation (28.0-62.0) fl RDW Coeff of Arin (11.0-15.0) % Plt Count (150-400) K/uL MPV (7.40-12.00) fL Neut % (Auto) (48.0-80.0) % Lymph % (Auto) (16.0-40.0) % [place] % (Auto) (0.0-15.0) % Eos % (Auto) (0.0-7.0) % Baso % (Auto) (0.0-1.5) % Neut # (Auto) (1.4-5.7) K/uL Lymph # (Auto) (0.6-2.4) K/uL [place] # (Auto) (0.0-0.8) K/uL Eos # (Auto) (0.0-0.7) K/uL Baso # (Auto) (0.0-0.1) K/uL Neutrophils % (Manual) (48.0-80.0) % Band Neutrophils % % Lymphocytes % (Manual) (16.0-40.0) % Nucleated RBC % /100WBC Absolute Seg Neuts (1.4-5.7) Band Neutrophils # Lymphocytes # (Manual) (0.6-2.4) Nucleated RBCs # K/uL INR APTT (18.6-31.3) SEC D-Dimer, Quantitative 11.07 H (0.0-0.50) mg/L FEU Sodium (136-148) mmol/L Potassium (3.5-5.1) mmol/L Chloride (98-107) mmol/L Carbon Dioxide (21.0-32.0) mmol/L BUN (7.0-18.0) mg/dL Creatinine (0.8-1.3) mg/dL Est Cr Clr Drug Dosing mL/min Estimated GFR (MDRD) ml/min Glucose (74-106) mg/dL Calcium (8.5-10.1) mg/dL Total Bilirubin (0.2-1.0) mg/dL AST (15-37) IU/L ALT (14-63) IU/L Alkaline Phosphatase (46-116) U/L Troponin I < 0.050 (0.000-0.056) ng/mL B-Natriuretic Peptide 47 (<100) PG/ML Total Protein (6.4-8.2) g/dL Albumin (3.4-5.0) g/dL Globulin (2.6-4.0) g/dL Albumin/Globulin Ratio (0.9-1.6) 11/22/18 11/22/18 11/22/18 Range/Units 06:21 06:21 06:21 WBC 12.19 H (4.0-11.0) K/uL RBC 5.03 (4.50-5.90) M/uL Hgb 14.9 (13.0-17.0) g/dL Hct 45.1 (38.0-50.0) % MCV 89.7 (80.0-98.0) fL MCH 29.6 (27.0-32.0) pg MCHC 33.0 (31.0-37.0) g/dL RDW Std Deviation 46.8 (28.0-62.0) fl RDW Coeff of Arin 14 (11.0-15.0) % Plt Count 138 L (150-400) K/uL MPV 10.70 (7.40-12.00) fL Neut % (Auto) (48.0-80.0) % Lymph % (Auto) (16.0-40.0) % [place] % (Auto) (0.0-15.0) % Eos % (Auto) (0.0-7.0) % Baso % (Auto) (0.0-1.5) % Neut # (Auto) (1.4-5.7) K/uL Lymph # (Auto) (0.6-2.4) K/uL [place] # (Auto) (0.0-0.8) K/uL Eos # (Auto) (0.0-0.7) K/uL Baso # (Auto) (0.0-0.1) K/uL Neutrophils % (Manual) 88 H (48.0-80.0) % Band Neutrophils % 5 % Lymphocytes % (Manual) 7 L (16.0-40.0) % Nucleated RBC % 0.0 /100WBC Absolute Seg Neuts 10.7 H (1.4-5.7) Band Neutrophils # 0.6 Lymphocytes # (Manual) 0.9 (0.6-2.4) Nucleated RBCs # K/uL INR APTT 157.1 H (18.6-31.3) SEC D-Dimer, Quantitative (0.0-0.50) mg/L FEU Sodium 139 (136-148) mmol/L Potassium 4.5 (3.5-5.1) mmol/L Chloride 104 (98-107) mmol/L Carbon Dioxide 22.8 (21.0-32.0) mmol/L BUN 20 H (7.0-18.0) mg/dL Creatinine 1.3 (0.8-1.3) mg/dL Est Cr Clr Drug Dosing 71.32 mL/min Estimated GFR (MDRD) 56.1 ml/min Glucose 168 H (74-106) mg/dL Calcium 9.1 (8.5-10.1) mg/dL Total Bilirubin (0.2-1.0) mg/dL AST (15-37) IU/L ALT (14-63) IU/L Alkaline Phosphatase (46-116) U/L Troponin I (0.000-0.056) ng/mL B-Natriuretic Peptide (<100) PG/ML Total Protein (6.4-8.2) g/dL Albumin (3.4-5.0) g/dL Globulin (2.6-4.0) g/dL Albumin/Globulin Ratio (0.9-1.6) Result Diagrams: 11/22/18 06:21 11/22/18 06:21 - Problem List (1) PE, Pulmonary embolism SNOMED Code(s): 62040595 ICD Code: I26.99 - OTHER PULMONARY EMBOLISM WITHOUT ACUTE COR PULMONALE Status: Acute Priority: High Current Visit: Yes (2) Dyspnea SNOMED Code(s): 549094092 ICD Code: R06.00 - DYSPNEA, UNSPECIFIED Status: Acute Priority: High Current Visit: Yes Qualifiers: Dyspnea type: shortness of breath Qualified Code(s): R06.02 - Shortness of breath; R06.00 - Dyspnea, unspecified; R06.01 - Orthopnea (3) DM type 2 (diabetes mellitus, type 2) SNOMED Code(s): 90761133 ICD Code: E11.9 - TYPE 2 DIABETES MELLITUS WITHOUT COMPLICATIONS Status: Chronic Priority: High Current Visit: Yes Qualifiers: Diabetes mellitus continuous churn buttermaker insulin use: without detention use Diabetes mellitus complication status: without complication Qualified Code(s): E11.9 - Type 2 diabetes mellitus without complications (4) SLADE on CPAP SNOMED Code(s): 80453907 ICD Code: G47.33 - OBSTRUCTIVE SLEEP APNEA (ADULT) (PEDIATRIC); Z99.89 - DEPENDENCE ON OTHER ENABLING MACHINES AND DEVICES Status: Chronic Priority: Medium Current Visit: Yes (5) Obesity SNOMED Code(s): 254224454, 756573899 ICD Code: E66.9 - OBESITY, UNSPECIFIED Status: Chronic Priority: Medium Current Visit: Yes Qualifiers: Obesity type: unspecified obesity type Obesity classification: adult class 3 (BMI >= 40) Serious obesity comorbidity presence: unspecified whether serious comorbidity present Body mass index: BMI 50.0-59.9 Qualified Code(s) : E66.01 - Morbid (severe) obesity due to excess calories; Z68.43 - Body mass index (BMI) 50-59.9, adult Problem List Initiated/Reviewed/Updated: Yes Orders Last 24hrs: Active Orders 24 hr Category Date Time Status Admission Status [Patient Status] [ADT] Stat ADT 11/21/18 23:57 Active BIPAP Adult [RT BiPAP/CPAP] [RC] ASDIRECTED Care 11/22/18 01:50 Active EKG Documentation Completion [RC] STAT Care 11/21/18 20:32 Active RT Aerosol Therapy [RC] ASDIRECTED Care 11/21/18 20:46 Active Heparin Sod,Pork In 0.45% Nacl [Heparin-1/2Ns 25,000 Med 11/21/18 23:45 Active Units/500] 25,000 unit in 500 ml IV TITRATE Sodium Chloride 0.9% [Saline Flush] Med 11/21/18 20:31 Active 10 ml FLUSH ASDIRECTED PRN Sodium Chloride 0.9% [Saline Flush] Med 11/21/18 20:31 Active 2.5 ml FLUSH ASDIRECTED PRN Saline Lock Insert [OM.PC] Stat Oth 11/21/18 20:31 Ordered Medication Orders Heparin Sodium/Sodium Chloride (Heparin-1/2ns 25,000 Units/500) 25,000 unit in 500 mls @ 63.684 mls/hr IV TITRATE SHASHI; Protocol Last Titration: 11/22/18 07:11 Dose: 0 units/kg/hr, 0 mls/hr Admin: 11/22/18 07:09 Dose: 15 units/kg/hr, 53.07 mls/hr Titration: 11/22/18 07:09 Dose: 18 units/kg/hr, 63.684 mls/hr Admin: 11/21/18 23:56 Dose: 18 units/kg/hr, 63.684 mls/hr Sodium Chloride (Saline Flush) 10 ml FLUSH ASDIRECTED PRN PRN Reason: Keep Vein Open Sodium Chloride (Saline Flush) 2.5 ml FLUSH ASDIRECTED PRN PRN Reason: Keep Vein Open Assessment/Plan Comment:: The patient is a 63-year-old gentleman who had been admitted with a diagnosis of pulmonary emboli. Other than morbid obesity the patient at this time does not have any specific triggers with regards to his PE. He does have a history of travel which did not involve continuous immobility. The patient will be kept in the ICU for now, on heparin drip and will have oxygen support to help keep his O2 saturations above 92%. The patient will likely be transitioned to treatment dose of Lovenox. 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 He'll be kept on sliding scale insulin for now. The patient's home medications will be started tomorrow. The patient will also be kept on telemetry due to the central pulmonary emboli. CT scan did not show any signs of right heart strain. The CT scan also did not show any evidence of malignancy. Patient is a nonsmoker. I have discussed with the patient risks, benefits and alternatives of the use of Coumadin versus novel oral anticoagulating agents. The patient will likely be started on Eliquis prior to discharge. The patient is also to follow-up with his primary care physician with regards to his morbid obesity. Should also consider outpatient workup for hypercoagulable state. The patient should be appropriate for discharge in 1-2 days.
[2018-11-22] MEDS: INVOKAMET PO SCH ×2 (08:36→22:56)
[2018-11-22] MEDS ORDERED: Acetaminophen 325 MG Tab PO PRN (09:00)
[2018-11-22] MEDS ORDERED: Pravastatin 40 MG Tab PO SCH (09:00)
[2018-11-22] MEDS ORDERED: Docusate Sodium 100 MG Cap PO PRN (09:00)
[2018-11-22] MEDS ORDERED: Ondansetron 4 MG Tab.DIS PO PRN (09:00)
[2018-11-22] MEDS ORDERED: oxyCODONE 5 MG Tab PO PRN (09:00)
[2018-11-22] MEDS: Lisinopril 5 MG Tab PO SCH (09:32)
[2018-11-22] MEDS: Insulin Aspart 100 Units/ML 3 ML Pen SUBCUT SCH (18:16)
[2018-11-22] MEDS ORDERED: Insulin Aspart 100 Units/ML 3 ML Pen SUBCUT SCH (21:00)
[2018-11-22] MEDS: Temazepam 15 MG Cap PO PRN (22:55)
[2018-11-23] MEDS: Heparin Sod,Pork In 0.45% Nacl 25,000 UNIT/500 ML IV.SOLN IV SCH (07:05)
--- NOTE | 2018-11-23 07:29 | PCM.PN ---
- General Info Date of Service: 11/23/18 Admission Dx/Problem (Free Text): Admission Diagnosis/Problem Admission Diagnosis/Problem Pulmonary embolism Subjective Update: The patient is a 63-year-old gentleman who was admitted yesterday out of concern for bilateral central pulmonary emboli. He was significantly short of breath. Patient has been in the intensive care unit. He has improved significantly. He has no chest pain. His breathing is also improved. The patient also has been on a heparin drip. Functional Status: Reports: Pain Controlled - Review of Systems General: Reports: No Symptoms HEENT: Reports: No Symptoms Pulmonary: Reports: Shortness of Breath Cardiovascular: Reports: No Symptoms Gastrointestinal: Reports: No Symptoms Genitourinary: Reports: No Symptoms Musculoskeletal: Reports: No Symptoms Skin: Reports: No Symptoms Neurological: Reports: No Symptoms Psychiatric: Reports: No Symptoms - Patient Data Vitals - Most Recent: Last Vital Signs Temp 36.6 C 11/23/18 04:00 Pulse 43 L 11/23/18 07:00 Resp 15 11/23/18 07:00 BP 131/43 L 11/23/18 07:00 Pulse Ox 97 11/23/18 07:00 Weight - Most Recent: 182.372 kg I&O - Last 24 Hours: Intake & Output 11/22/18 11/23/18 11/23/18 22:59 06:59 14:59 Intake Total 549 935 Balance 549 935 Lab Results Last 24 Hours: Laboratory Results - last 24 hr 11/22/18 11/22/18 11/22/18 Range/Units 06:11 06:21 14:07 WBC (4.0-11.0) K/uL RBC (4.50-5.90) M/uL Hgb (13.0-17.0) g/dL Hct (38.0-50.0) % MCV (80.0-98.0) fL MCH (27.0-32.0) pg MCHC (31.0-37.0) g/dL RDW Std Deviation (28.0-62.0) fl RDW Coeff of Arin (11.0-15.0) % Plt Count (150-400) K/uL MPV (7.40-12.00) fL Neut % (Auto) (48.0-80.0) % Lymph % (Auto) (16.0-40.0) % Overton % (Auto) (0.0-15.0) % Eos % (Auto) (0.0-7.0) % Baso % (Auto) (0.0-1.5) % Neut # (Auto) (1.4-5.7) K/uL Lymph # (Auto) (0.6-2.4) K/uL Overton # (Auto) (0.0-0.8) K/uL Eos # (Auto) (0.0-0.7) K/uL Baso # (Auto) (0.0-0.1) K/uL Neutrophils % (Manual) 88 H (48.0-80.0) % Band Neutrophils % 5 % Lymphocytes % (Manual) 7 L (16.0-40.0) % Nucleated RBC % /100WBC Absolute Seg Neuts 10.7 H (1.4-5.7) Band Neutrophils # 0.6 Lymphocytes # (Manual) 0.9 (0.6-2.4) Nucleated RBCs # K/uL APTT 107.1 H (18.6-31.3) SEC Sodium (136-148) mmol/L Potassium (3.5-5.1) mmol/L Chloride (98-107) mmol/L Carbon Dioxide (21.0-32.0) mmol/L BUN (7.0-18.0) mg/dL Creatinine (0.8-1.3) mg/dL Est Cr Clr Drug Dosing mL/min Estimated GFR (MDRD) ml/min Glucose (74-106) mg/dL POC Glucose 149 H (60-110) mg/dL Calcium (8.5-10.1) mg/dL 11/22/18 11/22/18 11/22/18 Range/Units 17:44 20:41 21:13 WBC (4.0-11.0) K/uL RBC (4.50-5.90) M/uL Hgb (13.0-17.0) g/dL Hct (38.0-50.0) % MCV (80.0-98.0) fL MCH (27.0-32.0) pg MCHC (31.0-37.0) g/dL RDW Std Deviation (28.0-62.0) fl RDW Coeff of Arin (11.0-15.0) % Plt Count (150-400) K/uL MPV (7.40-12.00) fL Neut % (Auto) (48.0-80.0) % Lymph % (Auto) (16.0-40.0) % Overton % (Auto) (0.0-15.0) % Eos % (Auto) (0.0-7.0) % Baso % (Auto) (0.0-1.5) % Neut # (Auto) (1.4-5.7) K/uL Lymph # (Auto) (0.6-2.4) K/uL Overton # (Auto) (0.0-0.8) K/uL Eos # (Auto) (0.0-0.7) K/uL Baso # (Auto) (0.0-0.1) K/uL Neutrophils % (Manual) (48.0-80.0) % Band Neutrophils % % Lymphocytes % (Manual) (16.0-40.0) % Nucleated RBC % /100WBC Absolute Seg Neuts (1.4-5.7) Band Neutrophils # Lymphocytes # (Manual) (0.6-2.4) Nucleated RBCs # K/uL APTT 67.1 H (18.6-31.3) SEC Sodium (136-148) mmol/L Potassium (3.5-5.1) mmol/L Chloride (98-107) mmol/L Carbon Dioxide (21.0-32.0) mmol/L BUN (7.0-18.0) mg/dL Creatinine (0.8-1.3) mg/dL Est Cr Clr Drug Dosing mL/min Estimated GFR (MDRD) ml/min Glucose (74-106) mg/dL POC Glucose 141 H 150 H (60-110) mg/dL Calcium (8.5-10.1) mg/dL 11/23/18 11/23/18 11/23/18 Range/Units 04:08 04:08 04:08 WBC 18.73 H (4.0-11.0) K/uL RBC 4.67 (4.50-5.90) M/uL Hgb 14.0 (13.0-17.0) g/dL Hct 42.0 (38.0-50.0) % MCV 89.9 (80.0-98.0) fL MCH 30.0 (27.0-32.0) pg MCHC 33.3 (31.0-37.0) g/dL RDW Std Deviation 46.5 (28.0-62.0) fl RDW Coeff of Arin 14 (11.0-15.0) % Plt Count 153 (150-400) K/uL MPV 10.80 (7.40-12.00) fL Neut % (Auto) 86.6 H (48.0-80.0) % Lymph % (Auto) 6.0 L (16.0-40.0) % Overton % (Auto) 7.3 (0.0-15.0) % Eos % (Auto) 0.0 (0.0-7.0) % Baso % (Auto) 0.1 (0.0-1.5) % Neut # (Auto) 16.2 H (1.4-5.7) K/uL Lymph # (Auto) 1.1 (0.6-2.4) K/uL Overton # (Auto) 1.4 H (0.0-0.8) K/uL Eos # (Auto) 0.0 (0.0-0.7) K/uL Baso # (Auto) 0.0 (0.0-0.1) K/uL Neutrophils % (Manual) (48.0-80.0) % Band Neutrophils % % Lymphocytes % (Manual) (16.0-40.0) % Nucleated RBC % 0.0 /100WBC Absolute Seg Neuts (1.4-5.7) Band Neutrophils # Lymphocytes # (Manual) (0.6-2.4) Nucleated RBCs # 0 K/uL APTT 79.1 H (18.6-31.3) SEC Sodium 139 (136-148) mmol/L Potassium 4.6 (3.5-5.1) mmol/L Chloride 104 (98-107) mmol/L Carbon Dioxide 25.9 (21.0-32.0) mmol/L BUN 31 H (7.0-18.0) mg/dL Creatinine 1.3 (0.8-1.3) mg/dL Est Cr Clr Drug Dosing 71.32 mL/min Estimated GFR (MDRD) 56.1 ml/min Glucose 133 H (74-106) mg/dL POC Glucose (60-110) mg/dL Calcium 8.5 (8.5-10.1) mg/dL Med Orders - Current: Current Medications Acetaminophen (Tylenol) 650 mg PO Q4H PRN PRN Reason: Pain (Mild 1-3)/fever Docusate Sodium (Colace) 100 mg PO BID PRN PRN Reason: Constipation Heparin Sodium/Sodium Chloride (Heparin-1/2ns 25,000 Units/500) 25,000 unit in 500 mls @ 63.684 mls/hr IV TITRATE [facility]; Protocol Last Admin: 11/23/18 07:05 Dose: 10 units/kg/hr, 35.38 mls/hr Insulin Aspart (Novolog) 0 unit SUBCUT TIDAC [facility]; Protocol Last Admin: 11/22/18 18:16 Dose: Not Given Lisinopril (Prinivil) 5 mg PO DAILY [facility] Last Admin: 11/22/18 09:32 Dose: 5 mg Ondansetron HCl (Zofran Odt) 4 mg PO Q4H PRN PRN Reason: nausea, able to take PO Oxycodone HCl (Oxycodone) 5 mg PO Q4H PRN PRN Reason: Pain (moderate 4-6) [Invokamet 150-500 (Mg Tablet]) 1 each PO BID [facility] Last Admin: 11/22/18 22:56 Dose: Not Given Pravastatin 10 Mg (Tab) 1 each PO BEDTIME [facility] Last Admin: 11/22/18 20:30 Dose: 1 each Sodium Chloride (Saline Flush) 10 ml FLUSH ASDIRECTED PRN PRN Reason: Keep Vein Open Sodium Chloride (Saline Flush) 2.5 ml FLUSH ASDIRECTED PRN PRN Reason: Keep Vein Open Temazepam (Restoril) 15 mg PO BEDTIME PRN PRN Reason: Sleep Last Admin: 11/22/18 22:55 Dose: 15 mg Discontinued Medications Albuterol/Ipratropium (Duoneb 3.0-0.5 Mg/3 Ml) 3 ml NEB ONETIME ONE Stop: 11/21/18 20:46 Last Admin: 11/21/18 20:53 Dose: 3 ml Albuterol/Ipratropium (Duoneb 3.0-0.5 Mg/3 Ml) Confirm Administered Dose 3 ml .ROUTE .STK-MED ONE Stop: 11/21/18 20:48 Last Admin: 11/21/18 20:53 Dose: Not Given Heparin Sodium (Porcine) (Heparin Sodium) 5,000 units IVPUSH ONETIME ONE Stop: 11/21/18 23:17 Last Admin: 11/22/18 00:01 Dose: Not Given Heparin Sodium (Porcine) (Heparin Sodium) 7,500 units IVPUSH ONETIME STA Stop: 11/21/18 23:57 Last Admin: 11/21/18 23:57 Dose: 7,500 units Sodium Chloride (Normal Saline) 1,000 mls @ 999 mls/hr IV STAT ONE Stop: 11/21/18 22:37 Last Admin: 11/21/18 21:41 Dose: 999 mls/hr Heparin Sodium/Sodium Chloride (Heparin-1/2ns 25,000 Units/500) Confirm Administered Dose 25,000 unit in 500 mls @ as directed IV .STK-MED ONE Stop: 11/21/18 23:33 Last Admin: 11/21/18 23:58 Dose: Not Given Insulin Aspart (Novolog) 0 unit SUBCUT ACBREAKFASTANDBED [facility]; Protocol Iopamidol (Isovue-370 (76%)) 100 ml IVPUSH ONETIME ONE Stop: 11/21/18 22:50 Last Admin: 11/21/18 22:49 Dose: 100 ml Methylprednisolone Sodium Succinate (Solu-Medrol) 125 mg IVPUSH ONETIME ONE Stop: 11/21/18 21:38 Last Admin: 11/21/18 21:43 Dose: 125 mg Morphine Sulfate (Morphine) 1 mg IVPUSH ONETIME ONE Stop: 11/22/18 01:48 Last Admin: 11/22/18 02:20 Dose: 1 mg Pravastatin Sodium (Pravachol) 10 mg PO BEDTIME [facility] Last Admin: 11/22/18 11:06 Dose: Not Given - Exam Quality Assessment: Supplemental Oxygen General: Alert, Oriented, Cooperative, No Acute Distress HEENT: Pupils Equal, Pupils Reactive, EOMI Neck: Supple, Trachea Midline Lungs: Clear to Auscultation, Normal Respiratory Effort Cardiovascular: Regular Rate, Regular Rhythm GI/Abdominal Exam: Normal Bowel Sounds, Soft, Non-Tender, No Distention, Other ( Obese) (Male) Exam: Deferred Back Exam: Normal Inspection, Full Range of Motion Extremities: Normal Inspection, No Pedal Edema Skin: Warm, Dry, Intact Neurological: No New Focal Deficit Psy/Mental Status: Alert, Normal Affect - Problem List & Annotations (1) PE, Pulmonary embolism SNOMED Code(s): 44147463 Code(s): I26.99 - OTHER PULMONARY EMBOLISM WITHOUT ACUTE COR PULMONALE Status: Acute Priority: High Current Visit: Yes (2) Dyspnea SNOMED Code(s): 464511329 Code(s): R06.00 - DYSPNEA, UNSPECIFIED Status: Acute Priority: High Current Visit: Yes Qualifiers: Dyspnea type: shortness of breath Qualified Code(s): R06.02 - Shortness of breath; R06.00 - Dyspnea, unspecified; R06.01 - Orthopnea (3) DM type 2 (diabetes mellitus, type 2) SNOMED Code(s): 31503377 Code(s): E11.9 - TYPE 2 DIABETES MELLITUS WITHOUT COMPLICATIONS Status: Chronic Priority: High Current Visit: Yes Qualifiers: Diabetes mellitus terminal makeup operator insulin use: without terminal makeup operator use Diabetes mellitus complication status: without complication Qualified Code(s): E11.9 - Type 2 diabetes mellitus without complications (4) SLADE on CPAP SNOMED Code(s): 69739227 Code(s): G47.33 - OBSTRUCTIVE SLEEP APNEA (ADULT) (PEDIATRIC); Z99.89 - DEPENDENCE ON OTHER ENABLING MACHINES AND DEVICES Status: Chronic Priority: Medium Current Visit: Yes (5) Obesity SNOMED Code(s): 360403543, 287734108 Code(s): E66.9 - OBESITY, UNSPECIFIED Status: Chronic Priority: Medium Current Visit: Yes Qualifiers: Obesity type: unspecified obesity type Obesity classification: adult class 3 (BMI >= 40) Serious obesity comorbidity presence: unspecified whether serious comorbidity present Body mass index: BMI 50.0-59.9 Qualified Code(s) : E66.01 - Morbid (severe) obesity due to excess calories; Z68.43 - Body mass index (BMI) 50-59.9, adult - Problem List Review Problem List Initiated/Reviewed/Updated: Yes - My Orders Last 24 Hours: My Active Orders 11/22/18 09:00 Blood Glucose Check, Bedside [RC] WITHMEALSANDBED Blood Glucose Check, Bedside [RC] WITHMEALSANDBED Oxygen Therapy [RC] PRN Up ad Rachna [RC] ASDIRECTED VTE/DVT Education [RC] PER UNIT ROUTINE Vital Signs [RC] Q1H Acetaminophen [Tylenol] 650 mg PO Q4H PRN Docusate Sodium [Colace] 100 mg PO BID PRN Lisinopril [Prinivil] 5 mg PO DAILY Ondansetron [Zofran ODT] 4 mg PO Q4H PRN Patient's Own Medication [Ptom] 1 each PO BID Temazepam [Restoril] 15 mg PO BEDTIME PRN oxyCODONE 5 mg PO Q4H PRN Glucose Management Sub Q Reflex [OM.PC] Click To Edit Resuscitation Status Routine 11/22/18 09:02 Diabetes Education [RC] Click to Edit 11/22/18 10:52 Patient's Own Medication [Ptom] 1 each PO BEDTIME 11/22/18 17:00 Insulin Aspart [NovoLOG] See Protocol SUBCUT TIDAC 11/22/18 17:20 Echo Comp wo Cont [US] Routine 11/22/18 17:22 Venous Doppler Lwr Ext Bi [US] Routine 11/22/18 Lunch Heart Healthy Diet [DIET] - Plan Plan:: The patient is a 63-year-old gentleman who had been admitted with the diagnosis of acute pulmonary emboli. CT scan had showed bilateral central emboli without evidence of right heart strain initially. EICU his evaluated the patient during his course with ICU and had recommended 2-D echocardiogram. This is been ordered. I believe it's important this time to determine if the patient has cor pulmonale secondary to his pulmonary emboli. The patient has been doing well enough with oxygen support and heparin drip that the patient will be transitioned from heparin drip to Lovenox 1 mg/kg twice a day. I've also had a discussion with the patient with regards to the risks benefits and alternatives of Coumadin versus Eliquis and the patient will be sent home on Eliquis when appropriate. Patient's pain has been controlled. The patient also has been encouraged to ambulate. He'll likely be appropriate for discharge with a 2-D echocardiogram completed. He is to follow-up with his primary care physician. Anticipated discharge in 1-2 days.
[2018-11-23] MEDS: Insulin Aspart 100 Units/ML 3 ML Pen SUBCUT SCH ×3 (07:41→17:29)
[2018-11-23] MEDS: INVOKAMET PO SCH ×2 (08:17→22:02)
[2018-11-23] MEDS: Lisinopril 5 MG Tab PO SCH (09:32)
[2018-11-23] MEDS: Enoxaparin 100 MG/1 ML Syringe SUBCUT SCH ×2 (11:20→22:01)
[2018-11-23] MEDS: Temazepam 15 MG Cap PO PRN (22:01)
[2018-11-24 07:04] LABS: CHLORIDE,CL 105 mmol/L (98-107); SODIUM,NA 139 mmol/L (136-148)
[2018-11-24] MEDS: Insulin Aspart 100 Units/ML 3 ML Pen SUBCUT SCH (07:30)
--- NOTE | 2018-11-24 07:40 | PCM.DCSUM1 ---
Discharge Summary - Hospital Course Free Text/Narrative:: The patient was admitted due to large bilateral pulmonary emboli. Diagnosis: Stroke: No - Discharge Data Discharge Date: 11/24/18 Discharge Disposition: Home, Self-Care 01 Condition: Good - Discharge Diagnosis/Problem(s) (1) PE, Pulmonary embolism SNOMED Code(s): 91413253 ICD Code: I26.99 - OTHER PULMONARY EMBOLISM WITHOUT ACUTE COR PULMONALE Status: Acute Priority: High Current Visit: Yes (2) Dyspnea SNOMED Code(s): 198916007 ICD Code: R06.00 - DYSPNEA, UNSPECIFIED Status: Acute Priority: High Current Visit: Yes Qualifiers: Dyspnea type: shortness of breath Qualified Code(s): R06.02 - Shortness of breath; R06.00 - Dyspnea, unspecified; R06.01 - Orthopnea (3) DM type 2 (diabetes mellitus, type 2) SNOMED Code(s): 58690142 ICD Code: E11.9 - TYPE 2 DIABETES MELLITUS WITHOUT COMPLICATIONS Status: Chronic Priority: High Current Visit: Yes Qualifiers: Diabetes mellitus senior care insulin use: without senior care use Diabetes mellitus complication status: without complication Qualified Code(s): E11.9 - Type 2 diabetes mellitus without complications (4) SLADE on CPAP SNOMED Code(s): 55971716 ICD Code: G47.33 - OBSTRUCTIVE SLEEP APNEA (ADULT) (PEDIATRIC); Z99.89 - DEPENDENCE ON OTHER ENABLING MACHINES AND DEVICES Status: Chronic Priority: Medium Current Visit: Yes (5) Obesity SNOMED Code(s): 763502779, 068766915 ICD Code: E66.9 - OBESITY, UNSPECIFIED Status: Chronic Priority: Medium Current Visit: Yes Qualifiers: Obesity type: unspecified obesity type Obesity classification: adult class 3 (BMI >= 40) Serious obesity comorbidity presence: unspecified whether serious comorbidity present Body mass index: BMI 50.0-59.9 Qualified Code(s) : E66.01 - Morbid (severe) obesity due to excess calories; Z68.43 - Body mass index (BMI) 50-59.9, adult - Patient Summary/Data Hospital Course: The patient is a 63-year-old gentleman who presented for admission on November 22, 2018 secondary to chest pain and he was found to have bilateral, relatively large central pulmonary emboli being present. There was no evidence on the CT scan of right heart strain. The patient was admitted to the intensive care unit to have his vital signs closely monitored and he was placed on a heparin drip. The patient has as risk factors morbid obesity as well as obstructive sleep apnea. The patient otherwise had remained hemodynamically stable and relatively pain free for his entire hospitalization. Patient had tolerated the heparin drip well. During the initial hospitalization the patient was also kept on oxygen support. The patient's initial d-dimer was 11.07 which had [address] the CT angiogram. The patient had continued to improve through his hospitalization. He was downgraded from the intensive care unit and he was placed on treatment dose of Lovenox at 180 mg subcutaneous twice a day. A discussion was held with the patient and his regarding risks benefits and alternatives of Coumadin versus novel oral anticoagulants. It was decided that the patient would be started on Eliquis 5 mg by mouth twice a day. EICU doctor who is following the patient peripherally had recommended that the patient have a sleep study to ensure the effectiveness of his CPAP device. A 2-D echocardiogram was obtained out of concern for right heart strain and the results of this are currently pending. Patient also had a Doppler ultrasound of his lower extremities to assess possible clot burden. The results of this are currently pending. The patient had been tolerating his diet and he also is recommended to have heart healthy diet, appropriate ADA diet, as tolerated. The patient is also to have activity as tolerated. He is hemodynamically stable and he has been discharged from acute hospitalization with recommendations listed above. - Patient Instructions Diet: Heart Healthy Diet, Diabetic Diet Activity: As Tolerated - Discharge Plan *PRESCRIPTION DRUG MONITORING PROGRAM REVIEWED*: No *COPY OF PRESCRIPTION DRUG MONITORING REPORT IN PATIENT HITESH: No Prescriptions/Med Rec: Apixaban [Eliquis] 5 mg PO BID #60 tablet Home Medications: Home Meds Lisinopril 5 mg PO DAILY 12/17/17 [History] Pravastatin Sodium 10 mg PO DAILY 12/17/17 [History] Canagliflozin/Metformin HCl [Invokamet 150-500 mg Tablet] 50 - 500 mg PO BID [History] Apixaban [Eliquis] 5 mg PO BID #60 tablet 11/24/18 [Rx] Oxygen Therapy Mode: Room Air Patient Handouts: Tips for Eating Away From Home If You Have Diabetes, Pulmonary Embolism, CPAP and BiPAP Information, Apixaban oral tablets Referrals: Clifford Graham MD [Physician] - 11/28/18 8:30 am - Discharge Summary/Plan Comment DC Time >30 min.: Yes - General Info Date of Service: 11/24/18 Admission Dx/Problem (Free Text: Admission Diagnosis/Problem Admission Diagnosis/Problem Pulmonary embolism Subjective Update: The patient is doing much better today. Functional Status: Reports: Pain Controlled, Tolerating Diet - Review of Systems General: Reports: No Symptoms HEENT: Reports: No Symptoms Pulmonary: Reports: No Symptoms Cardiovascular: Reports: No Symptoms Gastrointestinal: Reports: No Symptoms Genitourinary: Reports: No Symptoms Musculoskeletal: Reports: No Symptoms Skin: Reports: No Symptoms Neurological: Reports: No Symptoms Psychiatric: Reports: No Symptoms - Patient Data Vitals - Most Recent: Last Vital Signs Temp 36.5 C 11/24/18 06:35 Pulse 68 11/24/18 06:35 Resp 16 11/24/18 06:35 BP 142/79 H 11/24/18 06:35 Pulse Ox 97 11/24/18 06:35 Weight - Most Recent: 182.2 kg I&O - Last 24 hours: Intake & Output 11/23/18 11/24/18 11/24/18 22:59 06:59 14:59 Intake Total 1000 500 Output Total 0 Balance 1000 500 Lab Results - Last 24 hrs: Laboratory Results - last 24 hr 11/23/18 11/23/18 11/23/18 Range/Units 07:38 11:43 17:27 WBC (4.0-11.0) K/uL RBC (4.50-5.90) M/uL Hgb (13.0-17.0) g/dL Hct (38.0-50.0) % MCV (80.0-98.0) fL MCH (27.0-32.0) pg MCHC (31.0-37.0) g/dL RDW Std Deviation (28.0-62.0) fl RDW Coeff of Arin (11.0-15.0) % Plt Count (150-400) K/uL MPV (7.40-12.00) fL Neut % (Auto) (48.0-80.0) % Lymph % (Auto) (16.0-40.0) % [place] % (Auto) (0.0-15.0) % Eos % (Auto) (0.0-7.0) % Baso % (Auto) (0.0-1.5) % Neut # (Auto) (1.4-5.7) K/uL Lymph # (Auto) (0.6-2.4) K/uL [place] # (Auto) (0.0-0.8) K/uL Eos # (Auto) (0.0-0.7) K/uL Baso # (Auto) (0.0-0.1) K/uL Nucleated RBC % /100WBC Nucleated RBCs # K/uL Sodium (136-148) mmol/L Potassium (3.5-5.1) mmol/L Chloride (98-107) mmol/L Carbon Dioxide (21.0-32.0) mmol/L BUN (7.0-18.0) mg/dL Creatinine (0.8-1.3) mg/dL Est Cr Clr Drug Dosing mL/min Estimated GFR (MDRD) ml/min Glucose (74-106) mg/dL POC Glucose 94 86 91 (60-110) mg/dL Calcium (8.5-10.1) mg/dL 11/23/18 11/24/18 11/24/18 Range/Units 21:44 06:29 06:41 WBC 9.49 (4.0-11.0) K/uL RBC 5.04 (4.50-5.90) M/uL Hgb 15.0 (13.0-17.0) g/dL Hct 46.0 (38.0-50.0) % MCV 91.3 (80.0-98.0) fL MCH 29.8 (27.0-32.0) pg MCHC 32.6 (31.0-37.0) g/dL RDW Std Deviation 48.5 (28.0-62.0) fl RDW Coeff of Arin 15 (11.0-15.0) % Plt Count 168 (150-400) K/uL MPV 10.60 (7.40-12.00) fL Neut % (Auto) 64.8 (48.0-80.0) % Lymph % (Auto) 20.4 (16.0-40.0) % [place] % (Auto) 12.1 (0.0-15.0) % Eos % (Auto) 2.5 (0.0-7.0) % Baso % (Auto) 0.2 (0.0-1.5) % Neut # (Auto) 6.1 H (1.4-5.7) K/uL Lymph # (Auto) 1.9 (0.6-2.4) K/uL [place] # (Auto) 1.2 H (0.0-0.8) K/uL Eos # (Auto) 0.2 (0.0-0.7) K/uL Baso # (Auto) 0.0 (0.0-0.1) K/uL Nucleated RBC % 0.0 /100WBC Nucleated RBCs # 0 K/uL Sodium (136-148) mmol/L Potassium (3.5-5.1) mmol/L Chloride (98-107) mmol/L Carbon Dioxide (21.0-32.0) mmol/L BUN (7.0-18.0) mg/dL Creatinine (0.8-1.3) mg/dL Est Cr Clr Drug Dosing mL/min Estimated GFR (MDRD) ml/min Glucose (74-106) mg/dL POC Glucose 93 77 (60-110) mg/dL Calcium (8.5-10.1) mg/dL 11/24/18 Range/Units 06:41 WBC (4.0-11.0) K/uL RBC (4.50-5.90) M/uL Hgb (13.0-17.0) g/dL Hct (38.0-50.0) % MCV (80.0-98.0) fL MCH (27.0-32.0) pg MCHC (31.0-37.0) g/dL RDW Std Deviation (28.0-62.0) fl RDW Coeff of Arin (11.0-15.0) % Plt Count (150-400) K/uL MPV (7.40-12.00) fL Neut % (Auto) (48.0-80.0) % Lymph % (Auto) (16.0-40.0) % [place] % (Auto) (0.0-15.0) % Eos % (Auto) (0.0-7.0) % Baso % (Auto) (0.0-1.5) % Neut # (Auto) (1.4-5.7) K/uL Lymph # (Auto) (0.6-2.4) K/uL [place] # (Auto) (0.0-0.8) K/uL Eos # (Auto) (0.0-0.7) K/uL Baso # (Auto) (0.0-0.1) K/uL Nucleated RBC % /100WBC Nucleated RBCs # K/uL Sodium 139 (136-148) mmol/L Potassium 4.6 (3.5-5.1) mmol/L Chloride 105 (98-107) mmol/L Carbon Dioxide 26.8 (21.0-32.0) mmol/L BUN 26 H (7.0-18.0) mg/dL Creatinine 1.2 (0.8-1.3) mg/dL Est Cr Clr Drug Dosing 77.26 mL/min Estimated GFR (MDRD) > 60.0 ml/min Glucose 94 (74-106) mg/dL POC Glucose (60-110) mg/dL Calcium 8.7 (8.5-10.1) mg/dL Med Orders - Current: Current Medications Acetaminophen (Tylenol) 650 mg PO Q4H PRN PRN Reason: Pain (Mild 1-3)/fever Docusate Sodium (Colace) 100 mg PO BID PRN PRN Reason: Constipation Enoxaparin Sodium (Lovenox) 180 mg SUBCUT Q12H [facility] Last Admin: 11/23/18 22:01 Dose: 180 mg Insulin Aspart (Novolog) 0 unit SUBCUT TIDAC [facility]; Protocol Last Admin: 11/23/18 17:29 Dose: Not Given Lisinopril (Prinivil) 5 mg PO DAILY [facility] Last Admin: 11/23/18 09:32 Dose: 5 mg Ondansetron HCl (Zofran Odt) 4 mg PO Q4H PRN PRN Reason: nausea, able to take PO Oxycodone HCl (Oxycodone) 5 mg PO Q4H PRN PRN Reason: Pain (moderate 4-6) [Invokamet 150-500 (Mg Tablet]) 1 each PO BID [facility] Last Admin: 11/23/18 22:02 Dose: Not Given Pravastatin 10 Mg (Tab) 1 each PO BEDTIME [facility] Last Admin: 11/23/18 22:01 Dose: 1 each Sodium Chloride (Saline Flush) 10 ml FLUSH ASDIRECTED PRN PRN Reason: Keep Vein Open Sodium Chloride (Saline Flush) 2.5 ml FLUSH ASDIRECTED PRN PRN Reason: Keep Vein Open Temazepam (Restoril) 15 mg PO BEDTIME PRN PRN Reason: Sleep Last Admin: 11/23/18 22:01 Dose: 15 mg Discontinued Medications Albuterol/Ipratropium (Duoneb 3.0-0.5 Mg/3 Ml) 3 ml NEB ONETIME ONE Stop: 11/21/18 20:46 Last Admin: 11/21/18 20:53 Dose: 3 ml Albuterol/Ipratropium (Duoneb 3.0-0.5 Mg/3 Ml) Confirm Administered Dose 3 ml .ROUTE .STK-MED ONE Stop: 11/21/18 20:48 Last Admin: 11/21/18 20:53 Dose: Not Given Heparin Sodium (Porcine) (Heparin Sodium) 5,000 units IVPUSH ONETIME ONE Stop: 11/21/18 23:17 Last Admin: 11/22/18 00:01 Dose: Not Given Heparin Sodium (Porcine) (Heparin Sodium) 7,500 units IVPUSH ONETIME STA Stop: 11/21/18 23:57 Last Admin: 11/21/18 23:57 Dose: 7,500 units Sodium Chloride (Normal Saline) 1,000 mls @ 999 mls/hr IV STAT ONE Stop: 11/21/18 22:37 Last Admin: 11/21/18 21:41 Dose: 999 mls/hr Heparin Sodium/Sodium Chloride (Heparin-1/2ns 25,000 Units/500) Confirm Administered Dose 25,000 unit in 500 mls @ as directed IV .STK-MED ONE Stop: 11/21/18 23:33 Last Admin: 11/21/18 23:58 Dose: Not Given Heparin Sodium/Sodium Chloride (Heparin-1/2ns 25,000 Units/500) 25,000 unit in 500 mls @ 63.684 mls/hr IV TITRATE [facility]; Protocol Last Admin: 11/23/18 07:05 Dose: 10 units/kg/hr, 35.38 mls/hr Insulin Aspart (Novolog) 0 unit SUBCUT ACBREAKFASTANDBED [facility]; Protocol Iopamidol (Isovue-370 (76%)) 100 ml IVPUSH ONETIME ONE Stop: 11/21/18 22:50 Last Admin: 11/21/18 22:49 Dose: 100 ml Methylprednisolone Sodium Succinate (Solu-Medrol) 125 mg IVPUSH ONETIME ONE Stop: 11/21/18 21:38 Last Admin: 11/21/18 21:43 Dose: 125 mg Morphine Sulfate (Morphine) 1 mg IVPUSH ONETIME ONE Stop: 11/22/18 01:48 Last Admin: 11/22/18 02:20 Dose: 1 mg Pravastatin Sodium (Pravachol) 10 mg PO BEDTIME [facility] Last Admin: 11/22/18 11:06 Dose: Not Given - Exam Quality Assessment: Denies: Supplemental Oxygen General: Reports: Alert, Oriented, Cooperative, No Acute Distress HEENT: Reports: Pupils Equal, Pupils Reactive, EOMI, Mucous Membr. Moist/[place] Neck: Reports: Supple, Trachea Midline Lungs: Reports: Clear to Auscultation, Normal Respiratory Effort Cardiovascular: Reports: Regular Rate, Regular Rhythm GI/Abdominal Exam: Normal Bowel Sounds, Soft, Non-Tender, No Distention (Male) Exam: Deferred Rectal (Males) Exam: Deferred Back Exam: Reports: Normal Inspection, Full Range of Motion Extremities: Normal Inspection, Normal Range of Motion, Non-Tender, No Pedal Edema Skin: Reports: Warm, Dry, Intact Neurological: Reports: No New Focal Deficit Psy/Mental Status: Reports: Alert, Normal Affect, Normal Mood
[2018-11-24] MEDS: INVOKAMET PO SCH (08:24)
[2018-11-24] MEDS: Lisinopril 5 MG Tab PO SCH (08:24)
--- NOTE | 2018-11-24 10:24 | US ---
ULTRASOUND EXAMINATION OF the left and right lower lower extremities WITH DOPPLER HISTORY: PE FINDINGS: Examination of the left and right lower legs were performed from the groin to the calf region. The left common femoral vein is noncompressible. All visualized segments including right common femoral and bilateral proximal greater saphenous, superficial femoral, popliteal and calf veins appear patent with good compressibility. IMPRESSION: 1. Deep vein thrombosis within the left common femoral vein. 2. No evidence of a right-sided DVT.
[2018-11-24] MEDS: Enoxaparin 100 MG/1 ML Syringe SUBCUT SCH (10:41)
[2018-11-24 11:42] VITALS: BP 144/58
== END 2018-11-24 11:11 | disposition home or self-care (01) | DRG 134 ==
LOC: MW.ED 20:26 → MW.ICU 23:57
PROVIDERS: ADMIT Internal Medicine; ATTEND Internal Medicine
PROC: 5A09357 Assistance with Respiratory Ventilation, Less than 24 Consecutive Hours, Continuous Positive Airway Pressure (ICD-10-PCS; principal; 2018-11-22)
DX: I26.99 Other pulmonary embolism without acute cor pulmonale (principal); J96.91 Respiratory failure, unspecified with hypoxia; E66.01 Morbid (severe) obesity due to excess calories; Z68.43 Body mass index [BMI] 50.0-59.9, adult; E11.9 Type 2 diabetes mellitus without complications; G47.33 Obstructive sleep apnea (adult) (pediatric); E78.00 Pure hypercholesterolemia, unspecified; M19.90 Unspecified osteoarthritis, unspecified site; Z96.649 Presence of unspecified artificial hip joint; Z79.82 Long term (current) use of aspirin; Z79.899 Other long term (current) drug therapy; Z79.84 Long term (current) use of oral hypoglycemic drugs; Z99.89 Dependence on other enabling machines and devices
CPT/HCPCS: 36415; 71045; 71045-26; 71275; 71275-26; 80048; 80053; 82962; 83880; 84484; 85007; 85025; 85027; 85379; 85610; 85730; 93005; 93306; 93970; 93970-26; 94640; 94660; 96361; 96374; 96375; 99285-25; A9270-GY; J1644; J1650; J2270; J2930; J7040; J7620-GY; Q9967

== ENCOUNTER 2019-01-26 20:44 | Emergency (ER) | payer BC ==
[2019-01-26] MEDS ORDERED: Sodium Chloride 0.9% 1,000 ML IV ONE ×2 (20:53→21:45)
--- NOTE | 2019-01-26 21:02 | EDM.PDOC ---
ED HPI GENERAL MEDICAL PROBLEM - General Chief Complaint: Respiratory Problem Stated Complaint: SHORTNESS OF BREATH AND COUGH Time Seen by Provider: 01/26/19 20:47 - History of Present Illness INITIAL COMMENTS - FREE TEXT/NARRATIVE: HISTORY AND PHYSICAL: History of present illness: Patient 63-year-old white male with history of pulmonary medicine was on eloquence and is compliant with his medicines and presents with a concern of 1-1 /2 week history of cough and shortness of breath was slightly worse recently denies chest pain nausea vomiting or other complaints. He denies history of congestive heart failure and states his exercise tolerance is normally very good Review of systems: As per history of present illness and below otherwise all systems reviewed and negative. Past medical history: As per history of present illness and as reviewed below otherwise noncontributory. Surgical history: As per history of present illness and as reviewed below otherwise noncontributory. Social history: No reported history of drug or alcohol abuse. Family history: As per history of present illness and as reviewed below otherwise noncontributory. Physical exam: HEENT: Atraumatic, normocephalic, pupils reactive, negative for conjunctival pallor or scleral icterus, mucous membranes moist, throat clear, neck supple, nontender, trachea midline. Lungs: Clear to auscultation, breath sounds equal bilaterally, chest nontender. Heart: S1S2, regular, negative for clicks, rubs, or JVD. Abdomen: Soft, nondistended, nontender. Negative for masses or hepatosplenomegaly. Negative for costovertebral tenderness. Pelvis: Stable nontender. Genitourinary: Deferred. Rectal: Deferred. Extremities: Atraumatic, negative for cords or calf pain. Neurovascular unremarkable. Neuro: Awake, alert, oriented. Cranial nerves II through XII unremarkable. Cerebellum unremarkable. Motor and sensory unremarkable throughout. Exam nonfocal. Diagnostics: CBC CMP troponin PT/INR chest x-ray EKG BNP Therapeutics: IV O2 monitor Impression: #1 history of pulmonary embolism #2 dyspnea Definitive disposition and diagnosis as appropriate pending reevaluation and review of above. - Related Data Allergies Allergy/AdvReac Type Severity Reaction Status Date / Time No Known Allergies Allergy Verified 01/26/19 20:55 Home Meds: Home Meds Lisinopril 5 mg PO DAILY 12/17/17 [History] Pravastatin Sodium 10 mg PO DAILY 12/17/17 [History] Canagliflozin/Metformin HCl [Invokamet 150-500 mg Tablet] 50 - 500 mg PO BID [History] Apixaban [Eliquis] 5 mg PO BID #60 tablet 11/24/18 [Rx] Past Medical History - Past Health History Medical/Surgical History: Denies Medical/Surgical History HEENT History: Reports: None Cardiovascular History: Reports: High Cholesterol Respiratory History: Reports: Sleep Apnea Other Respiratory History: uses CPAP Gastrointestinal History: Reports: None Genitourinary History: Reports: Renal Calculus Musculoskeletal History: Reports: Fracture, Osteoarthritis Other Musculoskeletal History: DJD, hx fx ankle Neurological History: Reports: None Psychiatric History: Reports: None Endocrine/Metabolic History: Reports: Diabetes, Type II, Obesity/BMI 30+, Other (See Below) Other Endocrine/Metabolic History: pt states "I'm pre-diabetic type II" Hematologic History: Reports: None Immunologic History: Reports: None Oncologic (Cancer) History: Reports: None Dermatologic History: Reports: None - Infectious Disease History Infectious Disease History: Reports: Chicken Pox, Measles, Mumps - Past Surgical History Head Surgeries/Procedures: Reports: None HEENT Surgical History: Reports: Adenoidectomy, Tonsillectomy Cardiovascular Surgical History: Reports: None Respiratory Surgical History: Reports: None Male Surgical History: Reports: None Endocrine Surgical History: Reports: None Musculoskeletal Surgical History: Reports: Hip Replacement Social & Family History - Family History Family Medical History: Noncontributory - Caffeine Use Caffeine Use: Reports: Soda - Living Situation & Occupation Living situation: Reports: ED ROS GENERAL - Review of Systems Review Of Systems: ROS reveals no pertinent complaints other than HPI. ED EXAM, GENERAL - Physical Exam Exam: See Below (dictation) Course - Vital Signs Last Recorded V/S: Last Vital Signs Temp 37.1 C 01/26/19 23:47 Pulse 89 01/26/19 23:47 Resp 19 01/26/19 23:47 BP 135/65 01/26/19 23:47 Pulse Ox 95 01/26/19 23:47 - Orders/Labs/Meds Orders: Active Orders 24 hr Category Date Time Status Cardiac Monitoring [RC] . DIRECTED Care 01/26/19 20:53 Active EKG Documentation Completion [RC] STAT Care 01/26/19 20:53 Active B-NATRIURETC PEPTD [REF] Stat Lab 01/26/19 21:05 Received UA RFX WILLEM AND CULT IF INDIC [URIN] Stat Lab 01/26/19 20:53 Ordered Saline Lock Insert [OM.PC] Stat Oth 01/26/19 20:53 Ordered Labs: Laboratory Tests 01/26/19 01/26/19 01/26/19 Range/Units 21:05 21:05 21:05 WBC 8.93 (4.0-11.0) K/uL RBC 4.79 (4.50-5.90) M/uL Hgb 13.5 (13.0-17.0) g/dL Hct 42.9 (38.0-50.0) % MCV 89.6 (80.0-98.0) fL MCH 28.2 (27.0-32.0) pg MCHC 31.5 (31.0-37.0) g/dL RDW Std Deviation 46.4 (28.0-62.0) fl RDW Coeff of Arin 14 (11.0-15.0) % Plt Count 233 (150-400) K/uL MPV 9.60 (7.40-12.00) fL Neut % (Auto) 67.3 (48.0-80.0) % Lymph % (Auto) 15.6 L (16.0-40.0) % [place] % (Auto) 9.3 (0.0-15.0) % Eos % (Auto) 7.5 H (0.0-7.0) % Baso % (Auto) 0.3 (0.0-1.5) % Neut # (Auto) 6.0 H (1.4-5.7) K/uL Lymph # (Auto) 1.4 (0.6-2.4) K/uL [place] # (Auto) 0.8 (0.0-0.8) K/uL Eos # (Auto) 0.7 (0.0-0.7) K/uL Baso # (Auto) 0.0 (0.0-0.1) K/uL Nucleated RBC % 0.0 /100WBC Nucleated RBCs # 0 K/uL INR 1.11 Sodium 140 (136-148) mmol/L Potassium 4.2 (3.5-5.1) mmol/L Chloride 103 (98-107) mmol/L Carbon Dioxide 26.2 (21.0-32.0) mmol/L BUN 15 (7.0-18.0) mg/dL Creatinine 1.5 H (0.8-1.3) mg/dL Est Cr Clr Drug Dosing 61.81 mL/min Estimated GFR (MDRD) 47.6 ml/min Glucose 110 H (74-106) mg/dL Calcium 8.5 (8.5-10.1) mg/dL Total Bilirubin 0.4 (0.2-1.0) mg/dL AST 18 (15-37) IU/L ALT 18 (14-63) IU/L Alkaline Phosphatase 67 (46-116) U/L Troponin I < 0.050 (0.000-0.056) ng/mL Total Protein 7.1 (6.4-8.2) g/dL Albumin 2.8 L (3.4-5.0) g/dL Globulin 4.3 H (2.6-4.0) g/dL Albumin/Globulin Ratio 0.7 L (0.9-1.6) Meds: Medications Discontinued Medications Generic Name Dose Route Start Last Admin Trade Name Freq PRN Reason Stop Dose Admin Sodium Chloride 1,000 mls @ 999 mls/hr 01/26/19 20:53 01/26/19 21:07 Normal Saline IV 01/26/19 21:53 999 mls/hr STAT ONE Administration Sodium Chloride 1,000 mls @ 999 mls/hr 01/26/19 21:45 01/26/19 22:47 Normal Saline IV 01/26/19 22:45 999 mls/hr .Bolus ONE Administration Iopamidol 100 ml 01/26/19 22:06 01/26/19 22:45 Isovue-370 (76%) IVPUSH 01/26/19 22:07 100 ml ONETIME ONE Administration Departure - Departure Time of Disposition: 23:50 Disposition: DC/Tfer to Acute Hospital 02 Condition: Good Clinical Impression: Pleural effusion, History of pulmonary embolism Dyspnea Qualifiers: Dyspnea type: shortness of breath Qualified Code(s): R06.02 - Shortness of breath - Discharge Information Referrals: Edilson Graham DDS [Primary Care Provider] - Forms: ED Department Discharge - My Orders Last 24 Hours: My Active Orders 01/26/19 20:53 Cardiac Monitoring [RC] . DIRECTED EKG Documentation Completion [RC] STAT UA RFX WILLEM AND CULT IF INDIC [URIN] Stat Saline Lock Insert [OM.PC] Stat 01/26/19 21:05 B-NATRIURETC PEPTD [REF] Stat - Assessment/Plan Last 24 Hours: My Active Orders 01/26/19 20:53 Cardiac Monitoring [RC] . DIRECTED EKG Documentation Completion [RC] STAT UA RFX WILLEM AND CULT IF INDIC [URIN] Stat Saline Lock Insert [OM.PC] Stat 01/26/19 21:05 B-NATRIURETC PEPTD [REF] Stat
[2019-01-26 21:30] LABS: CHLORIDE,CL 103 mmol/L (98-107); SODIUM,NA 140 mmol/L (136-148)
[2019-01-26] MEDS ORDERED: Iopamidol 755 Mg/ML 100 ML Bottle IVPUSH ONE (22:06)
--- NOTE | 2019-01-26 23:20 | CT ---
INDICATION: Chest pain, shortness of breath TECHNIQUE: CT chest with i.v. contrast using pulmonary angiographic technique. Coronal and sagittal reformats were obtained. CONTRAST: 100 mL Isovue 370 COMPARISON: 11/21/2018 FINDINGS: Severe degradation of image quality noted due to body habitus. Cardiovascular: The pulmonary arteries are unremarkable in enhancement with no evidence of acute pulmonary embolism. Poor enhancement of the left lower lobe pulmonary artery is present. The heart has an unremarkable appearance and size. No sign of aneurysm in the thoracic aorta. Moderate atherosclerotic calcifications are noted in the coronary arteries. Mediastinum: No mass or adenopathy seen. Lung: Compressive atelectasis of most of the left lower lobe and lateral lingula noted. There is a 7 mm subpleural nodule present in the right middle lobe noted without interval change. Pleura and pericardium: Large loculated left pleural effusion is present and substantially increased in size compared to prior examination. No significant pericardial effusion is present. Chest wall and axilla: No mass or adenopathy seen. Bone: Unremarkable for age. Upper abdomen: Unremarkable. IMPRESSIONS: 1. Poor enhancement of the left lower lobe pulmonary artery is present. It is uncertain if this is due to residual pulmonary emboli seen from prior examination or interval development of new emboli. The acute pulmonary emboli in the right lower lobe and right pulmonary artery seen on prior examination have resolved. 2. Large loculated left pleural effusion is present and substantially increased in size compared to prior examination. 3. Compressive atelectasis of most of the left lower lobe and lateral lingula noted. 4. There is a 7 mm subpleural nodule present in the right middle lobe noted without interval change. Continued imaging surveillance is recommended. A copy of this report was faxed to Dr. Martinez at approximately 11:18 PM. Dictated by Liu Holder MD @ 01/26/2019 11:18:13 PM Please note that all CT scans at this facility use dose modulation, iterative reconstruction, and/or weight-based dosing when appropriate to reduce radiation dose to as low as reasonably achievable. Dictated by: Liu Holder MD @ 01/26/2019 23:18:30 (Electronically Signed)
[2019-01-26 23:48] VITALS: BP 135/65
== END 2019-01-27 ==
LOC: MW.ED 20:44
DX: J90 Pleural effusion, not elsewhere classified (principal); E78.00 Pure hypercholesterolemia, unspecified; Z79.01 Long term (current) use of anticoagulants; Z86.711 Personal history of pulmonary embolism; Z79.899 Other long term (current) drug therapy
CPT/HCPCS: 36415; 71275; 80053; 83880; 84484; 85025; 85610; 93005; 96360; 96361; 99285; J7040; Q9967; 99283

== ENCOUNTER 2023-02-24 18:16 | Emergency (ER) | payer BC ==
[2023-02-24] MEDS ORDERED: Sodium Chloride 0.9% 10 ML Syringe FLUSH PRN ×2 (18:46→18:48)
[2023-02-24] MEDS ORDERED: Acetaminophen 500 MG Tab PO STA (18:46)
[2023-02-24] MEDS ORDERED: Sodium Chloride 0.9% 2.5 ML Syringe FLUSH PRN ×2 (18:46→18:48)
[2023-02-24] MEDS ORDERED: Sodium Chloride 0.9% 1,000 ML IV STA ×6 (18:47→21:09)
[2023-02-24] MEDS ORDERED: Cefepime 2 GM in Sodium Chloride 0.9% 50 ML IV STA (19:02)
[2023-02-24 19:22] LABS: HEMATOCRIT 49.7 % (38.0-50.0); HEMOGLOBIN 16.6 g/dL (13.0-17.0); MEAN CORPUSCULAR HEMOGLOBIN 30.9 pg (27.0-32.0); MEAN CORPUSCULAR HGB CONC 33.4 g/dL (31.0-37.0); MEAN CORPUSCULAR VOLUME 92.6 fL (80.0-98.0); NRBC ABSOLUTE 0 K/uL; PLATELET COUNT,PLT 198 K/uL (150-400); RED BLOOD CELL COUNT 5.37 M/uL (4.50-5.90); WHITE BLOOD CELL COUNT,WBC 23.54 K/uL (4.0-11.0)
[2023-02-24 19:37] LABS: INR 1.22 (0.86-1.11)
[2023-02-24 19:46] LABS: A/G RATIO 0.7 (0.9-1.6); ALBUMIN 3.2 g/dL (3.4-5.0); BILIRUBIN TOTAL 1.2 mg/dL (0.2-1.0); CALCIUM 8.9 mg/dL (8.5-10.1); CARBON DIOXIDE,CO2 22.5 mmol/L (21.0-32.0); CREATININE 1.6 mg/dL (0.8-1.3); EST CRCL DRUG DOSING (CG) 55.01 mL/min; POTASSIUM,K 5.3 mmol/L (3.5-5.1); PROTEIN TOTAL,TP 7.6 g/dL (6.4-8.2)
[2023-02-24 19:54] LABS: MAGNESIUM 1.7 mg/dL (1.8-2.4)
[2023-02-24 19:55] LABS: C-REACTIVE PROTEIN 16.4 mg/dL (0.00-0.90)
[2023-02-24] MEDS ORDERED: Ondansetron 4 MG/2 ML SDV IVPUSH ONE (19:55)
[2023-02-24] MEDS ORDERED: Morphine 4 MG/ML Syringe IVPUSH ONE (19:55)
[2023-02-24] MEDS ORDERED: Magnesium Sulfate/Water 2 GM in Premix Bag 1 BAG IV STA (19:56)
[2023-02-24 20:06] LABS: BAND ABSOLUTE MAN 3.8; BAND PERCENT MAN 16 %; LYMPHOCYTES ABSOLUTE MAN 0.7 (0.6-2.4); LYMPHOCYTES PERCENT MAN 3 % (16.0-40.0); MONOCYTES ABSOLUTE MAN 0.9 (0.0-0.8); MONOCYTES PERCENT MAN 4 % (0.0-15.0); SEG NEUTROPHILS ABSOLUTE MAN 16.7 (1.4-5.7); SEG NEUTROPHILS PERCENT MAN 71 % (48.0-80.0)
[2023-02-24 20:11] LABS: MYELOCYTE ABSOLUTE MAN 1.4; MYELOCYTE PERCENT MAN 6 %
[2023-02-24] MEDS ORDERED: HYDROmorphone 1 MG/ML Syringe IVPUSH STA (21:32)
[2023-02-24 21:55] VITALS: BP 131/61; PULSE 89
== END 2023-02-24 21:50 ==
LOC: MW.ED 18:16
DX: T81.44XA Sepsis following a procedure, initial encounter (principal); E83.42 Hypomagnesemia; E66.9 Obesity, unspecified; E11.9 Type 2 diabetes mellitus without complications; E78.00 Pure hypercholesterolemia, unspecified; Z86.711 Personal history of pulmonary embolism; Z79.01 Long term (current) use of anticoagulants; Z79.899 Other long term (current) drug therapy; Z68.43 Body mass index [BMI] 50.0-59.9, adult; Z98.890 Other specified postprocedural states
CPT/HCPCS: 36415; 80053; 83605; 83735; 85025; 85610; 85652; 86140; 87040; 87070; 87075; 87205; 96365; 96366; 96367; 96368; 96375; 99284; A9270; J0692; J1170; J2270; J2405; J3370; J3475; J3490; J7030; J7050; 87077; 87186; 99285

== ENCOUNTER 2023-03-02 12:29 | Emergency (ER) | payer BC | END 2023-03-02 14:01 | disposition left against medical advice (07) | LOC: MW.ED 12:29 | DX: Z53.21 Procedure and treatment not carried out due to patient leaving prior to being seen by health care provider (principal) ==

== ENCOUNTER 2023-03-03 06:40 | Emergency (ER) | payer BC ==
[2023-03-03 09:58] VITALS: BP 185/63; PULSE 95
== END 2023-03-03 10:06 | disposition home or self-care (01) ==
LOC: MW.ED 06:40
DX: K59.00 Constipation, unspecified (principal); E11.9 Type 2 diabetes mellitus without complications; E66.9 Obesity, unspecified; Z79.01 Long term (current) use of anticoagulants; Z68.43 Body mass index [BMI] 50.0-59.9, adult
CPT/HCPCS: 74018; 74018-26; 99282; 99283